=== PATIENT | female | born 1985 ===

== ENCOUNTER 2017-07-23 09:45 | Inpatient (IN) ==
[2017-07-23] MEDS ORDERED: CITRIC ACID/SODIUM CITRATE 30ml PO ONE (10:08)
[2017-07-23] MEDS ORDERED: CEFAZOLIN PREMIX (MC ONLY) 2 GM/50 ML BAG IV ONE (10:08)
[2017-07-23] MEDS ORDERED: FAMOTIDINE PB 20 MG/50 ML BAG IV ONE (10:08)
[2017-07-23] MEDS ORDERED: NOZIN NASAL SWAB NAS ONE ×2 (10:08)
[2017-07-23] MEDS: LR 1,000 ML IV SCH ×2 (10:33→11:00)
[2017-07-23 10:44] VITALS: BMI 27.6
--- NOTE | 2017-07-23 10:48 | Anesthesia Preoperative Report ---
Anesthesia Epidural/Spinal Rec - Date and Time Date: 07/23/17 Preoperative Diagnosis: active lesion herpes simplex virus Procedure: Plan: Spinal - Vital Signs Vital Signs: Temperature 97.8 F 07/23/17 10:36 Pulse Rate 71 07/23/17 10:36 Respiratory Rate 16 07/23/17 10:36 Blood Pressure 135/89 07/23/17 10:36 Pulse Oximetry 100 07/23/17 10:36 NPO since: 2100 /Para: P:0 Heart Rate: 128 Height and Weight: 5'7" 174lbs - Medictaions & Allergies Inpatient Medications: Current Medications Lactated Ringer's (Lactated Ringers) 1,000 mls @ 999 mls/hr IV .Q1H1M [facility] Last Admin: 07/23/17 10:33 Dose: 999 mls/hr Isopropyl Alcohol (Nozin Nasal Swab) 1 each ELIZABETH 0600,1400,2200 [facility] Allergies/Adverse Reactions: Allergies Allergy/AdvReac Type Severity Reaction Status Date / Time No Known Allergies Allergy Verified 07/23/17 10:25 - Home Medications Home Medications: Home Medications Medication Instructions Recorded Confirmed Type Acyclovir [Acyclovir] 400 mg DAILY 07/23/17 07/23/17 History Pnv No.95/Ferrous Fum/Folic AC 1 tab PO DAILY 07/23/17 07/23/17 History [ Tablet] - Surgical History Anesthesia Reactions: None Hx Family Anesthesia Reaction: No History of Motion Sickness: No - Social History Smoking Status: Current every day smoker Second Hand Exposure: Yes Substance Use Type: does not use (denies) Alcohol Intake Frequency: former alcohol drinker (prior to ) Hx Chewing Tobacco Use: No - Pertinent Findings Lab Data: CBC and BMP 07/23/17 10:16 - Physical Exam Respiratory Exam: lungs clear Cardiovascular Exam: regular rate and rhythm - Airway Assessment Mallampati Score: II TMD: 3 Fingerbreadths Neck Extension: fair Overall Assessment: no airway concerns - ASA ASA Score: 2 - Discussion Discussion: Discussed risks/options/alternatives of anesthesia and questions answered. Patient consents. Nursing pain assessment noted. Anesthesia Discussion: family member Attestation Statement: Prior to the delivery of any anesthetic medication, I examined the patient, developed the plan, obtained the patient's consent and discussed the risk and benefits of the procedure with the patient/guardian.
--- OUTSIDE RECORDS SUMMARY | 2017-07-23 10:53 | External Medical Summary | Continuity of Care Document ---
:1985 Author Organization [facility] Address [address] [place], [place] [address] Phone Care Team Providers Name Role Phone Matt Veronica MD Unavailable Unavailable Allergies, Adverse Reactions, Alerts Substance Reaction Severity Status No Known Drug Allergies Unknown Active Medications Medication Instructions Dosage Effective Dates Status Comments (start - stop) acyclovir 400 mg take 1 tablet - Active tablet (400MG) by ORAL route every 8 hours until delivery Vitamin take 1 tablet by Not Available - Active tablet oral route every day Problems Condition Effective Dates (start - stop) Clinical Status 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 Encntr for suprvsn of normal first - preg, third trimester 32 weeks gestation of - Irregular Menses Encounter for test, result unknown Matern care for oth or susp poor fetl - grth, third tri, unsp Other viral diseases complicating - , third trimester 34 weeks gestation of - Maternal care for excess growth, - second tri, unsp Encntr for suprvsn of normal first - preg, second trimester 17 weeks gestation of - Maternal care for excess growth, - second tri, unsp Encntr for suprvsn of normal first - preg, second trimester 20 weeks gestation of - Abnormal glucose complicating - 31 weeks gestation of - Frequency of micturition Pap Smear Screening, Cervix - Encntr for suprvsn of normal first - preg, first trimester 13 weeks gestation of - Encntr for suprvsn of normal first - preg, first trimester 13 weeks gestation of - Encntr for suprvsn of normal first - preg, first trimester 13 weeks gestation of - Encntr for suprvsn of normal first - preg, second trimester 24 weeks gestation of - Encntr for suprvsn of normal first - preg, second trimester 20 weeks gestation of - Encntr for suprvsn of normal first - preg, second trimester 27 weeks gestation of - OCP Surveillance - Active Herpes Simplex Virus Active Procedures Procedure Date Immuniz admnin, 1 vac, sngl/combo 19 Yrs + TDAP VACCINE >7 IM OB Visit No Charge Results Test Name Date and Time Measure Units Reference Range Abnormal Flag Comments Unknown Advance Directives Directive Yes / No Effective Date File Name Unknown Encounters Encounter Practice Location Reason(s) Diagnoses Date Provider Care Team Description For Visit Members Keyana Geiger Matern care for Jun- Pineda Referring In Womens oth or susp poor 5-201 Soni. Provider: Erica GAVIRIA, fetl grth, third 7 [address] tri, unspOther Medical Driss, 700 1522, viral diseases [facility], complicating , [facility] [address] CH[address]VEZ, , third 120, Tar[place] 120, [id number], [email or web address] Juanjo Geiger, [place] weeks gestation KYLER CHÁVEZ, tel: of [phone] , [place]. tel: tel: [phone] Keyana Geiger Encntr for Jun- Pineda Referring In Womens suprvsn of 1-201 Soni. Provider: Erica GAVIRIA, normal first 7 [address] PO [address] preg, third Medical Driss, 700 1522, [email or web address] [facility] , [facility] Dr CHÁVEZ, of 120, Tar[place] 120, [id number], Juanjo Geiger, [place], tel: [phone]. , [place]. tel: tel: [phone] Keyana Geiger Abnormal glucose Oct-2 Pineda Referring In Womens complicating 0-201 Soni. Provider: Erica GAVIRIA, [email or web address] 7 [address] PO Box weeks gestation Medical Driss, 700 1522, of [facility] Esdras, , [facility] Dr CHÁVEZ, 120, Tar[place] 120, [id number], Juanjo Geiger, [place], tel: [phone]. , [place]. tel: tel: [phone] Keyana Geiger Encntr for Sep-2 Pineda Referring In Womens suprvsn of 7-201 Soni. Provider: Erica GAVIRIA, normal first 7 [address] PO Box preg, second Medical Driss, 700 1522, [email or web address] [facility], weeks gestation , [facility] Dr CHÁVEZ, of 120, Taras 120, , Juanjo Geiger, [place], tel: [phone]. , [place]. tel: tel: [phone] Keyana Geiger Encntr for Sep-0 Pineda Referring In Womens suprvsn of 6-201 Soni. Provider: Erica GAVIRIA, normal first 7 [address] PO Box preg, second Medical Driss, 700 1522, [email or web address] [facility], weeks [facility] , [facility] Dr [address]VEZ, of 120, Taras 120, [id number], Juanjo Geiger, [place], tel: [phone]. , [place]. tel: tel: [phone] Keyana Geiger Encntr for Aug-0 Pineda Referring In Womens suprvsn of 9-201 Osni. Provider: Erica GAVIRIA, normal first 7 [address] PO [address] preg, second Medical Driss, 700 1522, [email or web address] [facility], weeks gestation , [facility] Dr [address]VEZ, of 120, Taras 120, , Juanjo Geiger, [place] CHÁVEZ, tel: [phone]. , [place]. tel: tel: [phone] Keyana Geiger Maternal care Aug-0 Pineda Referring In Womens Ultrasound for excess 9-201 Soni. Provider: Health KHADRA, growth, second 7 [address] PO [address] tri, unspEncntr Medical Driss, 700 1522, for suprvsn of [facility], normal first , [facility] Dr CHÁVEZ, preg, second 120, Taras 120, , [email or web address] Juanjo Geiger, [place] weeks gestation [place], [place], tel:+ [phone]. , [place]. tel: tel: [phone] Keyana Geiger Maternal care Pineda Referring In Womens for excess 9-201 Soni. Provider: Health KHADRA, growth, second 7 [address] PO [address] tri, unspEncntr Medical Driss, 700 1522, for suprvsn of [facility], normal first , [facility] Dr [address]ÁVEZ, preg, second 120, Taras 120, , Juanjo Geiger, [place] weeks gestation KYLER CHÁVEZ, tel: of [phone]. , [place]. tel: tel: [phone] Keyana Willis for Frankie-2 Pineda Referring In Womens suprvsn of - Soni. Provider: Health KHADRA, normal first 7 [address] PO [address] preg, first Medical Driss, 700 1522, [email or web address] [facility], weeks gestation , [facility] Dr [address]VEZ, of 120, Tar[place] 120, , Juanjo Geiger, [place]ÁVEZ, tel: [phone]. , [place]. tel: tel: [phone] Keyana Willis for Frankie-2 Moreno Referring In Womens Ultrasound suprvsn of - Leelee. Provider: Health KHADRA, normal first 7 [address] PO [address] preg, first Medical Driss, 700 1522, [email or web address] [facility], weeks gestation , [facility] Dr [address]ÁVEZ, of 120, Taras 120, [id number], Juanjo Geiger, [facility], [place], tel:[phone]. , [place]. tel: tel: [phone] Keyana Geiger Encntr for Frankie-2 Pineda Referring In Womens suprvsn of 0-201 Soni. Provider: Erica GAVIRIA, normal first 7 [address] PO Box preg, first Medical Driss, 700 1522, [email or web address] [facility], weeks gestation , [facility] Dr [address]ÁVEZ, of 120, Taras 120, , Juanjo Geiger, [place], [place], tel:[phone]. , [place]. tel: tel: [phone] Geiger Irregular Frankie-0 Madden Referring In Womens MensesEncounter - Shana. Provider: Erica GAVIRIA, for 7 [address] PO Box test, result Medical Driss, 700 1522, unknown [facility] [address], [facility] Dr CHÁVEZ, 120, Taras 120, [id number], Juanjo Geiger, [place], [place], tel:[phone]. , [place]. tel: tel: [phone] Geiger Frequency of December- Driss Referring In Womens micturition 5-201 Skye. Provider: Erica GAVIRIA, 6 [address] PO Box Medical Driss, 700 1522, [place] [address], [facility] Dr CHÁVEZ, 120, Tar[place] 120, [id number], Juanjo Geiger, [place], [place], tel:[phone]. , [place]. 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 Provider: Erica GAVIRIA, (routine) w/o 5 [address] PO Box abn findingsPap Medical Driss, 700 1522, Smear Screening, [place] Jaye Dewitt Cervix , [facility] Dr CHÁVEZ, 120, Taras 120, [id number], Juanjo Geiger, [facility], [place], tel: [phone]. , . tel: tel: [phone] Keyana Geiger Driss Referring In Womens 3-201 Skye. Provider: Erica GAVIRIA, 4 [address] PO Box Medical Driss, 700 1522, [place] [address], [facility] Dr CHÁVEZ, 120, Taras 120, [id number], Juanjo Geiger, [place], [place], tel: [phone]. , . tel: tel: [phone] Family History Family Member Diagnosis Age At Onset No family history of Diabetes No family history of Osteoporosis No family history of Thyroid Disorder No family history of Breast Cancer No family history of Ovarian Cancer No family history of Hypertension No family history of Kidney Problems No family history of Colon Cancer No family history of Epilepsy No family history of Stroke No family history of Uterine Cancer No family history of Cardiovascular Disease No family history of Venous Thrombosis No family history of Lung Disease No family history of Pulmonary Embolism Immunizations Vaccine Date Status Comments Tdap completed Source: New Immunization Record Influenza, injectable, completed Source: New Immunization Record quadrivalent, preservative free, 3 yrs or older Payers Payer name Insurance type Covered green party ID Authorization(s) [employer] [place] - Medicaid MC [id number] Medica CI [id number] Aetna CI [id number] [place] [place] - Medicaid MC [id number] [place] [place] - Medicaid MC [id number] Social History Type Description Quantity Date Captured Alcohol Use Details No Caffeine Use Details Unknown Tobacco Use Status Smoking Status Former smoker Vital Signs Date / Height Weight BMI Pulse Blood Temperature Respiratory Body Head BMI Time: Rate Pressure Rate Surface Circumference percentile Area 167.70 36.2 128/82 2017 lbs 9 mm[Hg] 3:28 kg/m PM eter (2) Chief Complaint And Reason For Visit Unknown Chief Complaint And Reason For Visit Reason For Referral Reason For Referral Unknown Plan Of Care Date Type Action Status Goal Tobacco cessation counseling completed Goal Tobacco cessation counseling completed Goal Tobacco cessation counseling completed Goal Tobacco cessation counseling completed Appointment Tello Garnica BOOKED Appointment Tello Garnica BOOKED Future Order: Radiology Order Complete OB Ultrasound > 14 Ordered Weeks ([id number]) Future Order: Lab Order Pap Smear With HPV Reflex If Ordered ASCUS (WPMPap1) Future Order: Radiology Order Nuchal Translucency ([id number]) Ordered Future Order: Lab Order Pap Smear With High Risk HPV Ordered (WPMPap2) Date Type Problem Goal Intervention Status Start Date Unknown. History Of Present Illness Encounter Date Complaint History Of Present Illness This patient has no known history of present illness Functional Status Encounter Date Functional Assessment Cognitive Assessment Unknown Medications Administered Medication Instructions Dosage Effective Dates (start - stop) Status Comments Drug Treatment Unknown Instructions Date Instruction Additional Information toxoplasmosis precautions (cats / raw meat) HIV and other routine tests risk factors identified by history anticipated course of care nutrition and weight gain counseling, special diet sexual activity exercise indications for ultrasound influenza vaccine environmental / work hazards travel tobacco (ask, advise, assess, assist and arrange) use of any medications (including supplements, vitamins, herbs, OTC drugs) smoking counseling domestic violence seat belt use childbirth classes / hospital facilities hospital registration genetic testing new ob handbook Zika virus assessment & precautions
--- OUTSIDE RECORDS SUMMARY | 2017-07-23 10:53 | External Medical Summary | Continuity of Care Document ---
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 Irregular Menses Encounter for test, result unknown Maternal care for excess growth, - second tri, unsp Encntr for suprvsn of normal first - preg, second trimester 17 weeks gestation of - Maternal care for excess growth, - second tri, unsp Encntr for suprvsn of normal first - preg, second trimester 20 weeks gestation of - Frequency of micturition [...] Herpes Simplex Virus Active Procedures Procedure Date Unknown Results Test Name Date and Time Measure Units Reference Range Abnormal Flag Comments Panel Description: GLUCOSE TOLERANCE TEST, GESTATIONAL,4SPEC(100G) GLUCOSE, FASTING 08:04:00 73 mg/dL 65-94 N GLUCOSE, 1 HOUR 08:04:00 170 mg/dL <180 N GLUCOSE, 2 HOUR 08:04:00 145 mg/dL <155 N GLUCOSE, 3 HOUR 08:04:00 96 mg/dL <140 N 08:04:00 See Below Richardson/Coustan Criteria: Two or more values greater than the above reference intervals are suggestive of gestational diabetes. REPORT COMMENT:FASTING:YESTe st performed at [facility] [id number] [place] [address]Piwjzmoq: MELISSA VÁSQUEZ DO,MPH Advance Directives Directive Yes / No Effective Date File Name Unknown Encounters Encounter Practice Location Reason(s) Diagnoses Date Provider Care Team Description For Visit Members Keyana Geiger Sep-2 Pineda In Womens 8-201 Soni. [facility], 7 700 [address] Medical [address], [place] [address] [place], 120, [id number], [facility], tel: [phone] , [place]. tel: [phone] Keyana Geiger Encntr for Sep-2 Pineda Referring In Womens suprvsn of 7-201 Soni. Provider: Health PA, normal first 7 [address] PO Box preg, second Medical Driss, 700 1522, [email or web address] [place] [address], weeks gestation , [facility] [address] CHÁVEZ, of 120, Tar[place] 120, [id number], Juanjo Geiger, [place], [place], tel: [phone]. , [place]. tel: tel: [phone] Keyana Willis for Sep-0 Pineda Referring In Womens suprvsn of 6-201 Soni. Provider: Erica GAVIRIA, normal first 7 [address] PO Box preg, second Medical Driss, 700 1522, [email or web address] [facility], weeks gestation , [facility] [address] CHÁVEZ, of 120, Tar[place] 120, [id number], Juanjo Geiger, [place] CHÁVEZ, tel:[phone]. , [place]. tel: tel: [phone] Keyana Willis for Aug-0 Pineda Referring In Womens suprvsn of 9-201 Soni. Provider: Erica GAVIRIA, normal first 7 [address] PO Box preg, second Medical Driss, 700 1522, [email or web address] [facility], weeks gestation , [facility] [address] CHÁVEZ, of 120, Tar[place] 120, , Juanjo Geiger, [place]VEZ, tel:[phone]. , [place]. tel: tel: [phone] Keyana Geiger Maternal care Aug-0 Pineda Referring In Womens Ultrasound for excess 9-201 Soni. Provider: Erica GAVIRIA, growth, second 7 [address] PO Box tri, unspEncntr Medical Driss, 700 1522, for suprvsn of [facility], normal first , [facility] [address] CHÁVEZ, preg, second 120, Tar[place] 120, [id number], [email or web address] Juanjo Geiger, [place] weeks gestation KYLER CHÁVEZ, tel: of [phone]. , [place]. tel: tel: [phone] Keyana Geiger Maternal care Ta-1 Pineda Referring In Womens for excess 9-201 Soni. Provider: Erica GAVIRIA, growth, second 7 [address] PO Box tri, unspEncntr [facility] Driss, 700 1522, for suprvsn of [facility], normal first , [facility] [address] CHÁVEZ, preg, second 120, Taras 120, [id number], [email or web address] Juanjo Geiger, [place] weeks gestation KYLER CHÁVEZ, tel: of [phone]. , [place]. tel: tel: [phone] Keyana Geiger Encntr for Frankie-2 Pineda Referring In Womens suprvsn of 1-201 Soni. Provider: Erica GAVIRIA, normal first 7 [address] PO Box preg, first Medical Driss, 700 1522, [facility] , [facility] [address] CHÁVEZ, of 120, Taras 120, , Juanjo Geiger, [place], [place], tel: [phone]. , [place]. tel: tel: [phone] Keyana Geiger Encntr for Frankie-2 Moreno Referring In Womens Ultrasound suprvsn of 1-201 Leelee. Provider: Erica GAVIRIA, normal first 7 [address] PO Box preg, first Medical Driss, 700 1522, [email or web address] [facility] sEdras, weeks gestation , [facility] [address] CHÁVEZ, of 120, Taras 120, , Juanjo Geiger, [place], [place], tel: [phone]. , [place]. tel: tel: [phone] Keyana Geiger Encntr for Frankie-2 Pineda Referring In Womens suprvsn of 0-201 Soni. Provider: Erica GAVIRIA, normal first 7 [address] PO Box preg, first Medical Driss, 700 1522, [email or web address] [facility], weeks gestation , [facility] [address] CHÁVEZ, of 120, Taras 120, , Juanjo Geiger, [place], [place], tel: [phone]. , [place]. tel: tel: [phone] Keyana Geiger Irregular Frankie-0 Madden Referring In Womens MensesEncounter 5-201 Shana. Provider: Erica GAVIRIA, for 7 [address] PO Box test, result Medical Driss, 700 1522, unknown [place] [address], [facility] Dr CHÁVEZ, 120, Tar[place] 120, [id number], Juanjo Geiger, [place], tel: [phone]. , [place]. tel: tel: [phone] [facility] Frequency of December- Driss Referring In Womens micturition 5-201 Skye. Provider: Erica GAVIRIA, 6 [address] PO Box Medical Driss, 700 1522, [place] [address], [facility] Dr CHÁVEZ, 120, Tar[place] 120, [id number], Juanjo Ge[place], [place], tel: [phone]. , [place]. 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 Provider: Erica GAVIRIA, (routine) w/o 5 700 [address] PO Box abn findingsPap Medical Driss, 700 1522, Smear Screening, [place] [address], Cervix , [facility] [address] CHÁVEZ, 120, Tar[place] 120, [id number], Juanjo Geiger, [place], [place], tel:[phone]. , [place]. tel: tel: [phone] Keyana Geiger Driss Referring In Womens 3-201 Skye. Provider: Erica GAVIRIA, 4 700 [address] PO Box Medical Driss, 700 1522, [place] [address], [facility] Dr CHÁVEZ, 120, Tar[place] 120, [id number], Juanjo Ge[place], [place], tel: [phone]. , [place]. tel: tel: [phone] Family History Family Member Diagnosis Age At [...] Pulmonary Embolism Immunizations Vaccine Date Status Comments Unknown Payers Payer name Insurance type Covered alliance party ID Authorization(s) [employer] Plan Of [place] - Medicaid MC [id number] [employer] CI [id number] Aetna CI [id number] Social History Type Description Quantity Date Captured Unknown Vital Signs Date / Height Weight BMI Pulse Blood Temperature Respiratory Body Head BMI Time: Rate Pressure Rate Surface Circumference percentile Area Unknown Chief Complaint And Reason For Visit Unknown Chief Complaint And Reason For Visit Reason For Referral Reason For Referral Unknown Plan Of Care Date Type Action Status Goal Tobacco cessation counseling completed Goal Tobacco cessation counseling completed Goal Tobacco cessation counseling completed Goal Tobacco cessation counseling completed Appointment Tello Garnica BOOKED Future Order: Radiology Order Complete OB Ultrasound > 14 Ordered Weeks ([id number]) Future Order: Lab Order Pap Smear With HPV Reflex If Ordered ASCUS (WPMPap1) Future Order: Radiology Order Nuchal Translucency ([id number]) Ordered Future Order: Lab Order Pap Smear [...]
--- OUTSIDE RECORDS SUMMARY | 2017-07-23 10:54 | External Medical Summary | Continuity of Care Document ---
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) w/o abn findings Encntr for suprvsn of normal first - preg, second trimester 24 weeks gestation of - Irregular Menses Encounter for test, result unknown Maternal care for excess growth, - second tri, unsp 17 weeks gestation of - Encntr for suprvsn of normal first - preg, second trimester Maternal care for excess growth, - second tri, unsp Encntr for suprvsn of normal first - preg, second trimester 20 weeks gestation of - Frequency of micturition Pap Smear Screening, Cervix - Encntr for suprvsn of normal first - preg, first trimester 13 weeks gestation of - 13 weeks gestation of - Encntr for suprvsn of normal first - preg, first trimester Encntr for suprvsn of normal first - preg, first trimester 13 weeks gestation of - Encntr for suprvsn of normal first - preg, second trimester 20 weeks gestation of - OCP Surveillance - Active Herpes Simplex Virus Active Procedures Procedure Date OB Visit No Charge Results Test Name Date and Time Measure Units Reference Range Abnormal Flag Comments Unknown Advance Directives Directive Yes / No Effective Date File Name Unknown Encounters Encounter Practice Location Reason(s) Diagnoses Date Provider Care Team Description For Visit Members Keyana Willis for Pineda Referring In Womens suprvsn of 6 Soni. Provider: Erica GAVIRIA, normal first [address] preg, second Medical Driss, 700 1522, [email or web address] [facility], weeks gestation , [facility] Dr CHÁVEZ, of 120, Taras 120, , Juanjo Geiger, KYLER CHÁVEZ, tel:+ [phone]. , [place]. tel: tel: [phone] Keyana Geiger Encmo for Pineda Referring In Womens suprvsn of Soni. Provider: Erica GAVIRIA, normal first 7 [address] preg, second Medical Driss, 700 1522, [id number] [facility], weeks gestation , [facility] Dr CHÁVEZ, of 120, Taras 120, , Juanjo Geiger, KYLER CHÁVEZ, tel:[phone]. , [place]. tel: tel: [phone] Keyana Geiger Maternal care Pineda Referring In Womens Ultrasound for excess - Soni. Provider: Erica GAVIRIA, growth, second 7 [address] tri, unspEncntr Medical Driss, 700 1522, for suprvsn of [facility], normal first , [facility] Dr CHÁVEZ, preg, second 120, Taras 120, [id number], [email or web address] Juanjo Geiger, weeks gestation KYLER CHÁVEZ, tel:[phone]. , [place]. tel: tel: [phone] Keyana Geiger Maternal care Pineda Referring In Womens for excess 9-201 Soni. Provider: Erica GAVIRIA, growth, second 7 [address] tri, [email or web address] Medical Driss, 700 1522, weeks gestation [facility], of , [facility] Dr CHÁVEZ, pregnancyEncntr 120, Taras 120, , for suprvsn of Juanjo Geiger, normal first KYLER, KYLER, tel: preg, second [phone]. trimester , [place]. tel: tel: [phone] Keyana Geiger Encntr for Frankie-2 Pineda Referring In Womens suprvsn of 1-201 Soni. Provider: Erica GAVIRIA, normal first 7 [address] preg, first Medical Driss, 700 1522, [email or web address] [facility], weeks gestation , [facility] Dr CHÁVEZ, of 120, Taras 120, , Juanjo Geiger, KYLER CHÁVEZ, tel:[phone]. , [place]. tel: tel: [phone] Keyana Geiger 13 weeks Frankie-2 Moreno Referring In Womens Ultrasound gestation of 1-201 Leelee. Provider: Erica GAVIRIA, pregnancyEncntr 7 [address] for suprvsn of Medical Driss, 700 1522, normal first [facility], preg, first , [facility] Dr CHÁVEZ, trimester 120, Taras 120, , Juanjo Geiger, KYLER CHÁVEZ, tel: [phone]. , [place]. tel: tel: [phone] Keyana Ovallenttaz for Frankie-2 Pineda Referring In Womens suprvsn of 0-201 Soni. Provider: Erica GAVIRIA, normal first 7 [address] preg, first Medical Driss, 700 1522, [email or web address] [facility], weeks gestation , [facility] Dr CHÁVEZ, of 120, Taras 120, , Juanjo Geiger, KYLER CHÁVEZ, tel:[phone]. , [place]. tel: tel: [phone] Keyana Geiger Irregular Frankie-0 Madden Referring In Womens MensesEncounter 5-201 Shana. Provider: Erica GAVIRIA, for 7 [address] test, result Medical Driss, 700 1522, unknown [place] [address], [facility] Dr CHÁVEZ, 120, Taras 120, [id number], Juanjo Geiger, [place], [place], tel: [phone]. , [place]. tel: tel: [phone] [facility] Frequency of December- Driss Referring In Womens micturition 5-201 Skye. Provider: Erica GAVIRIA, 6 [address] PO [address] Medical Driss, 700 1522, [place] [address], [facility] Dr CHÁVEZ, 120, Taras 120, [id number], Juanjo Geiger, [place], [place], tel: [phone]. , [place]. 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 Provider: Erica GAVIRIA, (routine) w/o 5 [address] abn findingsPap Medical Driss, 700 1522, Smear Screening, [place] Jaye Dewitt, Cervix , [facility] Dr CHÁVEZ, 120, Taras 120, [id number], Juanjo Geiger, [place], [place], tel: [phone]. , [place]. tel: tel: [phone] Keyana Geiger Driss Referring In Womens 3-201 Skye. Provider: Erica GAVIRIA, 4 [address] Medical Driss, 700 1522, [place] [address], [facility] Dr CHÁVEZ, 120, Taras 120, [id number], Juanjo Geiger, [place], tel: [phone]. , [place]. tel: tel: [phone] Family History Family Member Diagnosis Age At [...] Unknown Payers Payer name Insurance type Covered democrat ID Authorization(s) [employer] Plan Of [place] - Medicaid MC [id number] Medica CI [id number] Aetna CI [id number] Social History Type Description Quantity Date Captured Alcohol Use Details No Caffeine Use Details Unknown Tobacco Use Status Smoking Status Former smoker Vital Signs Date / Height Weight BMI Pulse Blood Temperature Respiratory Body Head BMI Time: Rate Pressure Rate Surface Circumference percentile Area 32.7 6 1:47 kg/m PM eter (2) 157.90 34.1 124/ lbs 6 mm[Hg] 1:50 kg/m PM eter (2) Chief Complaint And [...] Complete OB Ultrasound > 14 Ordered Weeks (21613) Future Order: Lab Order Pap Smear With HPV Reflex If Ordered ASCUS ([id number]) Future Order: Radiology Order Nuchal Translucency ([id number]) Ordered Future Order: Lab Order Pap Smear [...]
--- OUTSIDE RECORDS SUMMARY | 2017-07-23 10:54 | External Medical Summary | Continuity of Care Document ---
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 Encntr for suprvsn of normal first - preg, second trimester 27 weeks gestation of - Irregular Menses Encounter [...] Reference Range Abnormal Flag Comments Panel Description: Glucose [Mass/volume] in Serum or Plasma --1 hour post 50 g glucose PO GLUCOSE, 169 mg/dL <140 H One hour value of > GESTATIONAL SCREEN 15:00:00 fn=269 mg/dL indicatesthe (50G)-140 CUTOFF need for a diagnostic 75 g dose 2-hour or100 g dose 3-hour oral glucose tolerance test;patient fasting is required.Test performed at [facility] [address] [id number]: MELISSA VÁSQUEZ DO,MPH Panel Description: HEMOGLOBIN + HEMATOCRIT HEMOGLOBIN 15:00:00 11.5 g/dL 11.7-15.5 L HEMATOCRIT 15:00:00 32.9 % 35.0-45.0 L REPORT COMMENT:FASTING :NOTest performed at [facility] [address] [id number]: MELISSA VÁSQUEZ DO,MPH Advance Directives Directive Yes / No Effective Date File Name Unknown Encounters Encounter Practice Location Reason(s) Diagnoses Date Provider Care Team Description For Visit Members Keyana Willis for Sep-2 Pineda Referring In Womens suprvsn of Soni. Provider: [facility], normal first 7 [address] preg, second Medical Driss, 700 1522, [email or web address] [facility] , [facility] Dr CHÁVEZ, of 120, Taras 120, [id number], Juanjo Geiger, KYLER CHÁVEZ, tel:[phone] [id number] , [place]. tel: tel: [phone] Keyana Willis for Sep-0 Pineda Referring In Womens suprvsn of 6 Soni. Provider: Erica GAVIRIA, normal first 7 [address] preg, second Medical Driss, 700 1522, [email or web address] [facility] , [facility] Dr CHÁVEZ, of 120, Taras 120, , Juanjo Geiger, [place] KYLER CHÁVEZ, tel:[phone]. , [place]. tel: tel: [phone] [facility] Pineda Referring In Womens suprvsn of 9-201 Soni. Provider: Erica GAVIRIA, normal first 7 [address] preg, second Medical Driss, 700 1522, [email or web address] [facility] , [facility] Dr CHÁVEZ, of 120, Taras 120, , Juanjo Geiger, [place] KYLER CHÁVEZ, tel:[phone]. , [place]. tel: tel: [phone] Keyana Geiger Maternal care Mar-0 Pineda Referring In Womens Ultrasound for excess 9-201 Soni. Provider: Erica GAVIRIA, growth, second 7 [address] tri, unspEncntr Medical Driss, 700 1522, [facility], normal first , [facility] Dr CHÁVEZ, preg, second 120, Taras 120, , [email or web address] Juanjo Geiger, weeks gestation KYLER, KYLER, tel:+ [phone]. , [place]. tel: tel: [phone] Keyana Geiger Maternal care Feb- Pineda Referring In Womens for excess 9-201 Soni. Provider: Erica GAVIRIA, growth, second 7 [address] tri, unspEncntr Medical Driss, 700 1522, [facility], normal first , [facility] Dr CHÁVEZ, preg, second 120, Taras 120, [id number], [email or web address] Juanjo Geiger, weeks gestation KYLER, KYLER, tel:+ [phone]. , [place]. tel: tel: [phone] Keyana Geiger Encntr for Frankie-2 Pineda Referring In Womens suprvsn of 1-201 Soni. Provider: Erica GAVIRIA, normal first 7 [address] preg, first Medical Driss, 700 1522, [email or web address] [facility], weeks gestation , [facility] Dr CHÁVEZ, of 120, Taras 120, , Juanjo Geiger, [facility], [place], tel:[phone]. , [place]. tel: tel: [phone] Keyana Geiger Encntr for Frankie-2 Moreno Referring In Womens Ultrasound suprvsn of 1-201 Leelee. Provider: Erica GAVIRIA, normal first 7 [address] preg, first Medical Driss, 700 1522, [email or web address] [facility], weeks gestation , [facility] Dr CHÁVEZ, of 120, Taras 120, , Juanjo Geiger, [place], [place], tel: [phone]. , [place]. tel: tel: [phone] Keyana Geiger Encntr for Frankie-2 Pineda Referring In Womens suprvsn of 0-201 Soni. Provider: Erica GAVIRIA, normal first 7 [address] preg, first Medical Driss, 700 1522, [id number] [facility], weeks gestation , [facility] Dr CHÁVEZ, of 120, Taras 120, , Juanjo Geiger, [place], [place], tel: [phone]. , [place]. tel: tel: [phone] Keyana Geiger Irregular Frankie-0 Madden Referring In Womens MensesEncounter 5-201 Shana. Provider: Erica GAVIRIA, for 7 [address] PO [address] test, result Medical Driss, 700 1522, unknown [facility] Eek, , [facility] Dr CHÁVEZ, 120, Taras 120, [id number], Juanjo Geiger, [place], [place], tel:[phone]. , [place]. tel: tel: [phone] [facility] Frequency of December- Driss Referring In Womens micturition 5-201 Skye. Provider: Erica GAVIRIA, 6 [address] PO Box Medical Driss, 700 1522, [place] [address], [facility] Dr CHÁVEZ, 120, Taras 120, [id number], Juanjo Geiger, [place], [place], tel: [phone]. , [place]. 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 Provider: Erica GAVIRIA, (routine) w/o 5 [address] abn findingsPap Medical Driss, 700 1522, Smear Screening, [facility], Cervix , [facility] Dr CHÁVEZ, 120, Taras 120, [id number], Juanjo Geiger, [place], [place], tel: [phone]. , [place]. tel: tel: [phone] Keyana Geiger Driss Referring In Womens 3-201 Skye. Provider: Erica GAVIRIA, 4 [address] PO [address] Medical Driss, 700 1522, [place] [address], [facility] Dr CHÁVEZ, 120, Taras 120, [id number], Juanjo Geiger, [place], [place], tel: [phone]. , [place]. tel: tel: [phone] Family History Family Member Diagnosis Age At [...] [employer] Plan [place] - Medicaid MC [id number] Medica CI [id number] Aetna CI [id number] Social History Type Description Quantity Date Captured Alcohol Use Details No Caffeine Use Details coffee rare per day Tobacco Use Status Ex-cigarette smoker Smoking Status Former smoker Vital Signs Date / Height Weight BMI Pulse Blood Temperature Respiratory Body Head BMI Time: Rate Pressure Rate Surface Circumference percentile Area 162.80 35.2 / lbs 3 mm[Hg] 2:23 kg/m PM eter (2) Chief Complaint And [...] Complete OB Ultrasound > 14 Ordered Weeks ([id number]) Future Order: Lab Order Pap Smear With HPV Reflex If Ordered ASCUS (WPMPap1) Future Order: Radiology Order Nuchal Translucency ([id number]) Ordered Future Order: Lab Order Pap Smear [...]
--- OUTSIDE RECORDS SUMMARY | 2017-07-23 10:54 | External Medical Summary ---
:1985 Author Organization [employer] Care Team Providers Name Role Phone Andre Christianson Provider Role Unavailable Allergies, Adverse Reactions, Alerts Substance Reaction Event Type N.K.D.A. 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 54504-214 10 MG Orally qD May 20, po day 1, 7-2014 then 5 po day 2, then 4 po day 3, then 3 po day 4, then 2 po day 5, then 1 po day 6 Procedures Procedure Coding System Code Date OFFICE VISIT NEW PT CPT-4 09431 May 20, 2015 Vital Signs Date/Time: May 20, 2015 Blood Pressure Systolic 100 mm Hg Height 67 in Weight 133 lbs BMI 20.83 Index Blood Pressure Diastolic 74 mm Hg Results No Known Results Summary Purpose eClinicalWorks Submission
--- OUTSIDE RECORDS SUMMARY | 2017-07-23 10:54 | External Medical Summary | Continuity of Care Document ---
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 Provider: Erica GAVIRIA, normal first 7 [address] preg, second Medical Driss, 700 1522, [id number] [facility], weeks gestation , [facility] Dr CHÁVEZ, of 120, Taras 120, [id number], Juanjo Geiger, KYLER CHÁVEZ, tel:[phone]. , [place]. tel: tel: [phone] Keyana Geiger Maternal care Pineda Referring In Womens Ultrasound for excess - Soni. Provider: Erica GAVIRIA growth, second 7 [address] Box tri, unspEncntr Medical Driss, 700 1522, for suprvsn of [facility], normal first , [facility] Dr CHÁVEZ, preg, second 120, Taras 120, [id number], [id number] Juanjo Geiegr, weeks gestation KYLER CHÁVEZ, tel: [phone]. , [place]. tel: tel: [phone] Keyana Geiger Maternal care Pineda Referring In Womens for excess 9- Soni. Provider: Erica GAVIRIA growth, second 7 [address] PO Box tri, unspEncntr Medical Driss, 700 1522, for suprvsn of [facility], normal first , [facility] Dr CHÁVEZ, preg, second 120, Taras 120, [id number], [id number] Juanjo Geiger, weeks gestation KYLER CHÁVEZ, tel:+ of [phone]. , [place]. tel: tel: [phone] Keyana Willis for Pineda Referring In Womens suprvsn of - Soni. Provider: [facility], normal first 7 [address] PO Box preg, first Medical Driss, 700 1522, [email or web address] [facility] Esdras, weeks gestation , [facility] Dr CHÁVEZ, of 120, Taras 120, , Juanjo Geiger, KYL[place], KYLER, tel:[phone]. , [place]. tel: tel: [phone] Keyana Geiger Encntr for Frankie-2 Moreno Referring In Womens Ultrasound suprvsn of 1-201 Leelee. Provider: Erica GAVIRIA, normal first 7 [address] PO Box preg, first Medical Driss, 700 1522, [facility] Esdras, weeks gestation , [facility] Dr CHÁVEZ, of 120, Taras 120, , Juanjo Geiger, KYL[place], KYLER, tel:[phone]. , [place]. tel: tel: [phone] Geiger 13 weeks Frankie-2 Pineda Referring In Womens gestation of 0-201 Soni. Provider: Erica GAVIRIA, pregnancyEncntr 7 [address] PO Box for suprvsn of Medical Driss, 700 1522, normal first [place] Jaye Dewitt, preg, first , [facility] Dr CHÁVEZ, trimester 120, Taras 120, [id number], Juanjo Geiger, KYLER, KYLER, tel:[phone]. , [place]. tel: tel: [phone] Geiger Irregular Frankie-0 Madden Referring In Womens MensesEncounter 5-201 Shana. Provider: Erica GAVIRIA, for 7 [address] PO Box test, result Medical Driss, 700 1522, unknown [facility] [address], [facility] Dr CHÁVEZ, 120, Taras 120, [id number], Juanjo Geiger, [place], [place]YL[place], tel: [phone]. , [place]. tel: tel: [phone] Keyana Geiger Frequency of December-0 Driss Referring In Womens micturition 5-201 Skye. Provider: Health KHADRA, 6 [address] PO Box Medical Driss, 700 1522, [place] [address], [facility] Dr CHÁVEZ, 120, Taras 120, [id number], Juanjo Geiger, KYLER CHÁVEZ, tel: [phone]. , [place]. 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 Provider: Health KHADRA, (routine) w/o 5 [address] PO Box abn findingsPap Medical Driss, 700 1522, Smear Screening, [place] Jaye Dewitt, Cervix , [facility] Dr CHÁVEZ, 120, Taras 120, [id number], Juanjo Geiger, KYLER, KYLER, tel: [phone]. , [place]. tel: tel: [phone] Keyana Geiger Driss Referring In Womens 3-201 Skye. Provider: Erica GAVIRIA, 4 [address] PO Box Medical Driss, 700 1522, [place] [address], [facility] Dr CHÁVEZ, 120, Taras 120, [id number], Juanjo Geiger, KYLER, KYLER, tel: [phone]. , [place]. tel: tel: [phone] Family History Family Member Diagnosis Age At [...] [employer] Plan [place] - Medicaid MC [id number] Medica CI [id number] [employer] CI [id number] Social History Type Description Quantity Date Captured Alcohol Use Details No Caffeine Use Details Unknown Tobacco Use Status Smoking Status Former smoker Vital Signs Date / Height Weight BMI Pulse Blood Temperature Respiratory Body Head BMI Time: Rate Pressure Rate Surface Circumference percentile Area 151.40 32.7 127/70 2017 lbs 6 mm[Hg] 1:53 kg/m PM eter (2) Chief Complaint And [...] Complete OB Ultrasound > 14 Ordered Weeks ([id number]) Future Order: Lab Order Pap Smear With HPV Reflex If Ordered ASCUS (WPMPap1) Future Order: Radiology Order Nuchal Translucency ([id number]) Ordered Future Order: Lab Order Pap Smear [...]
--- OUTSIDE RECORDS SUMMARY | 2017-07-23 10:54 | External Medical Summary | Continuity of Care Document ---
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 Provider: Erica GAVIRIA, [email or web address] 7 [address] PO Box weeks gestation Medical Driss, [address], of [place] [address], [facility] Dr CHÁVEZ, 120, Taras 120, [id number], Juanjo [place], [place], [place], tel:[phone]. , [place]. tel: tel: [phone] Keyana Geiger Oct-0 Pineda In Womens 4-201 Soni. Erica GAVIRIA, 7 700 [address] Medical [address], [address] [place] Esdras, [facility] [place], 120, [id number], [place], [place], tel:[phone] , [place]. tel: [phone] Keyana Willis for Sep-2 Pineda Referring In Womens suprvsn of 7-201 Soni. Provider: Erica GAVIRIA, normal first 7 [address] PO Box preg, second Medical Driss, 700 1522, [email or web address] [place] [address], weeks gestation , [facility] Dr CHÁVEZ, of 120, Taras 120, [id number], Juanjo [place], [place], [place], tel:[phone]. , [place]. tel: tel: [phone] Keyana Ovallenttaz for Sep-0 Pineda Referring In Womens suprvsn of 6-201 Soni. Provider: Erica GAVIRIA, normal first 7 [address] PO Box preg, second Medical Driss, 700 1522, [email or web address] [facility], weeks gestation , [facility] Dr CHÁVEZ, of 120, Taras 120, , Juanjo [place], [place] [address], tel: [phone]. , [place]. tel: tel: [phone] Keyana Ge[place] Encnttaz for Aug-0 Pineda Referring In Womens suprvsn of 9-201 Soni. Provider: Health KHADRA, normal first 7 [address] PO Box preg, second Medical Driss, 700 1522, [email or web address] [facility], weeks gestation , [facility] Dr CHÁVEZ, of 120, Taras 120, , Juanjo [place], [place], tel: [phone]. , [place]. tel: tel: [phone] Keyana Ge[place] Maternal care Mar-0 Pineda Referring In Womens Ultrasound for excess 9-201 Soni. Provider: Health KHADRA, growth, second 7 [address] PO Box tri, unspEncntr Medical Driss, 700 1522, for suprvsn of [facility], normal first , [facility] Dr CHÁVEZ, preg, second 120, Taras 120, [id number], [email or web address] Juanjo Geiger, weeks gestation [place] [address], tel: of [phone]. , [place]. tel: tel: [phone] Keyana Geiger Maternal care Feb- Pineda Referring In Womens for excess 9-201 Soni. Provider: Health KHADRA, growth, second 7 [address] PO Box tri, unspEncntr Medical Driss, 700 1522, for suprvsn of [facility], normal first , [facility] Dr CHÁVEZ, preg, second 120, Taras 120, [id number], [email or web address] Juanjo [place], weeks gestation [place] [address], tel: of [phone]. , [place]. tel: tel: [phone] Keyana Ge[place] Encntr for Frankie-2 Pineda Referring In Womens suprvsn of 1-201 Soni. Provider: Erica GAVIRIA, normal first 7 700 [address] PO Box preg, first Medical Driss, 700 1522, [email or web address] [facility], weeks gestation , [facility] Dr CH[address]Z, of 120, Taras 120, [id number], Juanjo [place], [place], [place], tel: [phone]. , [place]. tel: tel: [phone] Keyana Ge[place] Encntr for Frankie-2 Moreno Referring In Womens Ultrasound suprvsn of 1-201 Leelee. Provider: Erica GAVIRIA, normal first 7 [address] PO Box preg, first Medical Driss, 700 1522, [email or web address] [facility] , [facility] Dr CHÁVEZ, of 120, Taras 120, , Juanjo [place], [place], [place], tel:[phone]. , [place]. tel: tel: [phone] Keyana Ge[place] Encntr for Frankie-2 Pineda Referring In Womens suprvsn of 0-201 Soni. Provider: Erica GAVIRIA, normal first 7 [address] PO Box preg, first Medical Driss, 700 1522, [email or web address] [facility], weeks gestation , [facility] Dr CHÁVEZ, of 120, Taras 120, , Juanjo [place], [place], tel: [phone]. , [place]. tel: tel: [phone] Keyana Geiger Irregular Frankie-0 Madden Referring In Womens MensesEncounter 5-201 Shana. Provider: Erica GAVIRIA, for 7 [address] PO Box test, result Medical Driss, 700 1522, unknown [facility] [place], , [facility] Dr CHÁVEZ, 120, Tar[place] 120, [id number], Juanjo [place], [place], tel: [phone]. , [place]. tel: tel: [phone] Keyana Ge[place] Frequency of December- Driss Referring In Womens micturition 5-201 Skye. Provider: Erica GAVIRIA, 6 700 [address] PO Box Medical Driss, 700 15[address], [place] [address], [facility] Center Dr CHÁVEZ, 120, Taras 120, [id number], Juanjo Ge[place], [facility], [place], tel: [phone]. , [place]. tel: tel: [phone] Keyana Ge[place] Encntr for barker peeler Jul- Holdeman Referring In Womens exam (general) 7-201 Anaya. Provider: Erica GAVIRIA, (routine) w/o 5 700 [address] PO Box abn findingsPap Medical Driss, 700 1522, Smear Screening, [facility] [place], Cervix , [facility] Dr CHÁVEZ, 120, Taras 120, [id number], Juanjo Ge[place], [facility], [place], tel: [phone]. , [place]. tel: tel: [phone] Keyana Ge[place] Driss Referring In Womens 3-201 Skye. Provider: Erica GAVIRIA, 4 700 [address] PO Box Medical Driss, 700 1522, [place] [address], [facility] Center Dr CHÁVEZ, 120, Taras 120, [id number], Juanjo Ge[place], [facility], [place], tel: [phone]. , [place]. tel: tel: [phone] Family History Family Member Diagnosis Age At [...] Pulmonary Embolism Immunizations Vaccine Date Status Comments Influenza, injectable, completed Source: New Immunization Record quadrivalent, preservative free, 3 yrs or older Payers Payer name Insurance type Covered green party ID Authorization(s) [employer] [place] - Medicaid MC [id number] Medica CI [id number] Aetna CI [id number] [place] [place] - Medicaid MC [id number] Social History Type Description Quantity Date Captured [...] Complete OB Ultrasound > 14 Ordered Weeks (43972) Future Order: Lab Order Pap Smear With HPV Reflex If Ordered ASCUS (WPMPap1) Future Order: Radiology Order Nuchal Translucency ([id number]) Ordered Future Order: Lab Order Pap Smear [...]
--- OUTSIDE RECORDS SUMMARY | 2017-07-23 10:54 | External Medical Summary | Continuity of Care Document ---
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 Provider: Erica GAVIRIA, normal first 7 [address] PO Box preg, second Medical Driss, 700 1522, [email or web address] [facility], weeks gestation , [facility] Dr CHÁVEZ, of 120, Tar[place] 120, [id number], Juanjo [place], [place], [place], tel:[phone]. , [place]. tel: tel: [phone] Keyana Geiger Sep-1 Pineda In Womens 3-201 Soni. Erica GAVIRIA, 7 700 PO Box Medical [address], [address] Esdras, [facility] [place], 120, , [place], [place], tel: [phone] , [place]. tel: [phone] Keyana Ge[place] Encntr for Sep-0 Pineda Referring In Womens suprvsn of 6-201 Soni. Provider: Erica GAVIRIA, normal first 7 [address] PO Box preg, second Medical Driss, 700 1522, [email or web address] [facility], weeks gestation , [facility] Dr CH[address]VEZ, of 120, Tar[place] 120, , Juanjo [place], [place], [place], tel:+ [phone]. , [place]. tel: tel: [phone] Keyana Geiger Encntr for Aug-0 Pineda Referring In Womens suprvsn of 9-201 Soni. Provider: Erica GAVIRIA, normal first 7 [address] PO Box preg, second Medical Driss, 700 1522, [email or web address] [facility], weeks gestation , [facility] Dr CHÁVEZ, of 120, Taras 120, , Juanjo [place], [place], tel: [phone]. , [place]. tel: tel: [phone] Keyana Geiger Maternal care Aug-0 Pineda Referring In Womens Ultrasound for excess 9-201 Soni. Provider: Health KHADRA, growth, second 7 [address] PO Box tri, unspEncntr Medical Driss, 700 1522, for suprvsn of [facility], normal first , [facility] Dr CHÁVEZ, preg, second 120, Taras 120, , Juanjo Geiger, weeks gestation [place] [address], tel:+ [phone]. , [place]. tel: tel: [phone] Keyana Geiger Maternal care Feb- Pineda Referring In Womens for excess 9-201 Soni. Provider: Health KHADRA, growth, second 7 [address] PO Box tri, unspEncntr Medical Driss, 700 1522, for suprvsn of [facility], normal first , [facility] Dr CHÁVEZ, preg, second 120, Taras 120, [id number], Juanjo [place], weeks gestation [place] [address], tel:+ [phone]. , [place]. tel: tel: [phone] Keyana Willis for Frankie-2 Pineda Referring In Womens suprvsn of 1-201 Soni. Provider: Health KHADRA, normal first 7 [address] PO Box preg, first Medical Driss, 700 1522, [email or web address] [facility], weeks gestation , [facility] Dr CHÁVEZ, of 120, Taras 120, , Juanjo [place], [place], tel: [phone]. , [place]. tel: tel: [phone] Keyana Willis for Frankie-2 Moreno Referring In Womens Ultrasound suprvsn of 1-201 Leelee. Provider: Health KHADRA, normal first 7 [address] PO Box preg, first Medical Driss, 700 1522, [email or web address] [facility] Es[place], weeks gestation , [facility] Dr CHÁVEZ, of 120, Tar[place] 120, [id number], Juanjo [place], [place], [place], tel:+ [phone]. , [place]. tel: tel: [phone] Keyana Ovallentr for Frankie-2 Pineda Referring In Womens suprvsn of 0-201 Soni. Provider: Erica GAVIRIA, normal first 7 [address] PO Box preg, first Medical Driss, 700 1522, [email or web address] [facility] [place], weeks gestation , [facility] Dr CHÁVEZ, of 120, Taras 120, , Juanjo Geiger, [facility], [place], tel:[phone]. , [place]. tel: tel: [phone] Keyana Geiger Irregular Frankie-0 Madden Referring In Womens MensesEncounter 5-201 Shana. Provider: Erica GAVIRIA, for 7 700 [address] PO Box test, result Medical Driss, 700 1522, unknown Center [address], [facility] Dr CHÁVEZ, 120, Tar[place] 120, [id number], Juanjo Geiger, [facility], [place], tel:[phone]. , [place]. tel: tel: [phone] [place] Frequency of December- Driss Referring In Womens micturition 5-201 Skye. Provider: Erica GAVIRIA, 6 700 [address] PO Box Medical Driss, 700 1522, [address], [facility] Dr CHÁVEZ, 120, Taras 120, [id number], Juanjo [place], [place], tel:[phone]. , [place]. tel: tel: [phone] Keyana Ge[place] Encntr for outside repairer special Dec- Holdeman Referring In Womens exam (general) 7-201 Anaya. Provider: Health KHADRA, (routine) w/o 5 700 [address] PO Box abn findingsPap Medical Driss, 700 1522, Smear Screening, [place] [address] Dewitt Cervix , [facility] Dr CH[address]VEZ, 120, Tar[place] 120, [id number], Juanjo Geiger, [facility], [place], tel: [phone]. , . tel: tel: [phone] Keyana Gegier Driss Referring In Womens 3-201 Skye. Provider: Erica GAVIRIA, 4 700 [address] PO Box Medical Driss, [address], [address], [facility] Dr CHÁVEZ, 120, Tar[place] 120, [id number], Juanjo Geiger, [facility], [place], tel: [phone]. , . tel: tel: [phone] Family History Family Member Diagnosis Age At [...] [employer] [place] - Medicaid MC [id number] Medica CI [id number] Aetna CI [id number] Social History Type Description Quantity Date Captured [...] Complete OB Ultrasound > 14 Ordered Weeks (13437) Future Order: Lab Order Pap Smear With HPV Reflex If Ordered ASCUS (WPMPap1) Future Order: Radiology Order Nuchal Translucency ([id number]) Ordered Future Order: Lab Order Pap Smear [...]
--- OUTSIDE RECORDS SUMMARY | 2017-07-23 10:54 | External Medical Summary | Continuity of Care Document ---
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) - (routine) w/o abn findings Maternal care for excess growth, - second tri, unsp Encntr for suprvsn of normal first - preg, second trimester 17 weeks gestation of - Irregular Menses Encounter for test, result unknown Frequency of micturition Pap Smear Screening, Cervix [...] Procedures Procedure Date OB Visit No 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 Provider: Erica GAVIRIA, growth, second 7 [address] PO Box tri, unspEncntr Medical Driss, 700 1522, for suprvsn of [facility], normal first , [facility] Dr CHÁVEZ, preg, second 120, Taras 120, [id number], [email or web address] Juanjo [place], weeks gestation [place], [place], tel: of [phone]. , [place]. tel: tel: [phone] Keyana Geiger Encntr for Frankie-2 Pineda Referring In Womens suprvsn of 1-201 Soni. Provider: Erica GAVIRIA, normal first 7 700 [address] PO Box preg, first Medical Driss, 700 1522, [email or web address] [facility], weeks gestation , [facility] Dr CHÁVEZ, of 120, Taras 120, , Juanjo [place], [place], tel:[phone]. , [place]. tel: tel: [phone] Keyana Geiger Encntr for Frankie-2 Mroeno Referring In Womens Ultrasound suprvsn of 1-201 Leelee. Provider: Erica GAVIRIA, normal first 7 700 [address] PO Box preg, first Medical Driss, 700 1522, [email or web address] [facility], weeks gestation , [facility] Dr CHÁVEZ, of 120, Taras 120, , Juanjo [place], [place], tel:[phone]. , [place]. tel: tel: [phone] Keyana Ge[place] Encntr for Frankie-2 Pineda Referring In Womens suprvsn of 0-201 Soni. Provider: Erica GAVIRIA, normal first 7 700 [address] PO Box preg, first Medical Driss, 700 1522, [email or web address] [facility], weeks gestation , [facility] Dr CHÁVEZ, of 120, Traas 120, , Juanjo [place], [place], tel:[phone]. , [place]. tel: tel: [phone] [facility] Irregular Frankie-0 Madden Referring In Womens MensesEncounter 5-201 Shana. Provider: Erica GAVIRIA, for 7 700 [address] PO Box test, result Medical Driss, 700 1522, unknown [place] [address], [facility] Dr CHÁVEZ, 120, Tar[place] 120, [id number], Juanjo [place], [place], [place], tel: [phone]. , [place]. tel: tel: [phone] [facility] Frequency of December- Driss Referring In Womens micturition 5-201 Skye. Provider: Erica GAVIRIA, 6 700 [address] PO Box Medical Driss, 700 1522, [place] [address], [facility] Dr CHÁVEZ, 120, Taras 120, [id number], Juanjo [place], [facility], [place], tel:[phone]. , [place]. 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 Provider: Erica GAVIRIA, (routine) w/o 5 700 [address] PO Box abn findingsPap Medical Driss, 700 1522, Smear Screening, [place] [address], Cervix , [facility] Dr CHÁVEZ, 120, Tar[place] 120, [id number], Juanjo [place], [place], [place], tel: [phone]. , [place]. tel: tel: [phone] [facility] Driss Referring In Womens 3-201 Skye. Provider: Erica GAVIRIA, 4 700 [address] PO Box Medical Driss, 700 1522, [place] [address], [facility] Dr CHÁVEZ, 120, Taras 120, [id number], Juanjo [place], [place], [place], tel: [phone]. , [place]. tel: tel: [phone] Family History Family Member Diagnosis Age At [...] Unknown Payers Payer name Insurance type Covered libertarian ID Authorization(s) [employer] Plan Of [place] - Medicaid MC [id number] Medica CI [id number] Aetna CI [id number] Social History Type Description Quantity Date Captured Alcohol Use Details No Caffeine Use Details Unknown Tobacco Use Status Smoking Status Former smoker Vital Signs Date / Height Weight BMI Pulse Blood Temperature Respiratory Body Head BMI Time: Rate Pressure Rate Surface Circumference percentile Area 140.90 30.4 / lbs 9 mm[Hg] 11:29 kg/m AM eter (2) 29.8 8 11:25 kg/m AM eter (2) 29.8 132/ 8 mm[Hg] 11:28 kg/m AM eter (2) Chief Complaint And Reason For Visit Unknown Chief Complaint And Reason For Visit Reason For Referral Reason For Referral Unknown Plan Of Care Date Type Action Status Goal Tobacco cessation counseling completed Goal Tobacco cessation counseling completed Goal Tobacco cessation counseling completed Goal Tobacco cessation counseling completed Appointment Tello Garnica BOOKED Appointment Tello Garnica BOOKED Future Order: Lab Order Pap Smear With HPV Reflex If Ordered ASCUS (WPMPap1) Future Order: Radiology Order Nuchal Translucency ([id number]) Ordered Future Order: Lab Order Pap Smear [...]
--- OUTSIDE RECORDS SUMMARY | 2017-07-23 10:54 | External Medical Summary | Continuity of Care Document ---
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) w/o abn findings Matern care for oth or susp poor fetl - grth, third tri, unsp Other viral diseases complicating - , third trimester 34 weeks gestation of - Irregular Menses Encounter for test, result unknown Matern care for oth or susp poor fetl - gr, third tri, unsp 36 weeks gestation of - Maternal care for [...] second trimester 27 weeks gestation of - Encntr for suprvsn of normal first - preg, third trimester Encounter For Screening For - Streptococcus B 36 weeks gestation of - Encntr for suprvsn of normal first - preg, third trimester 32 weeks gestation of - Encntr for suprvsn of normal first - preg, third trimester 37 weeks gestation of - OCP Surveillance - Active Herpes Simplex Virus Active Procedures Procedure Date OB Visit No Charge Results Test Name Date and Time Measure Units Reference Range Abnormal Flag Comments Unknown Advance Directives Directive Yes / No Effective Date File Name Unknown Encounters Encounter Practice Location Reason(s) Diagnoses Date Provider Care Team Description For Visit Members Keyana Lucasr for Pineda Referring In Womens suprvsn of normal 5-201 Soni. Provider: [facility], first preg, third 7 [address] [id number] weeks Medical Driss, 700 1522, gestation of [facility] [place], , [facility] Dr [address]Z, 120, Taras 120, [id number], Juanjo Geiger, [place] KYLER CHÁVEZ, tel:[phone] [id number] , [place]. tel:+ tel: [phone] Keyana Geiger Encntr for Nov-2 Pineda Referring In Womens suprvsn of normal 9-201 Soni. Provider: Erica GAVIRIA, first preg, third 7 [address] trimesterEncounte Medical Driss, 700 1522, r For [facility], Screening For Dr, [facility] Dr CHÁVEZ, Streptococcus B36 120, Taras 120, [id number], weeks gestation Juanjo Geiger, [place] of [place]YLER CHÁVEZ, tel: [phone]. , [place]. tel: tel: [phone] Keyana Geiger Matern care for Nov-2 Pineda Referring In Womens Ultrasound oth or susp poor 9-201 Soni. Provider: Erica GAVIRIA, fetl grth, third 7 [address] tri, [email or web address] weeks Medical Driss, 700 1522, gestation of [facility], , [facility] Dr CHÁVEZ, 120, Taras 120, , [place], [place], tel: [phone]. , [place]. tel: tel: [phone] Keyana Geiger Matern care for Nov-1 Pineda Referring In Womens oth or susp poor 5-201 Soni. Provider: Erica GAVIRIA, fetl grth, third 7 [address] tri, unspOther Medical Driss, 700 1522, viral diseases [facility], complicating , [facility] Dr CHÁVEZ, , third 120, Taras 120, [id number], [id number] weeks Juanjo Geiger, [place] gestation of K[place]ER CHÁVEZ, tel: [phone]. , [place]. tel: tel: [phone] Keyana Geiger Encntr for Nov-0 Pineda Referring In Womens suprvsn of normal 1-201 Soni. Provider: Erica GAVIRIA, first preg, third 7 [address] [email or web address] weeks Medical Driss, 700 1522, gestation of [facility], , [facility] Dr CHÁVEZ, 120, Taras 120, , [place] Geiger, [place]ER [place]Z, tel: [phone]. , [place]. tel: tel: [phone] Keyana Geiger Abnormal glucose Oct-2 Pineda Referring In Womens complicating 0-201 Soni. Provider: Erica GAVIRIA, [email or web address] weeks 7 [address] PO Box gestation of Medical Driss, 700 1522, [facility], , [facility] Dr [address]ÁVEZ, 120, Taras 120, [id number], Juanjo Geiger, [facility], [place], tel: [phone]. , [place]. tel: tel: [phone] Keyana Ovallentr for Sep-2 Pineda Referring In Womens suprvsn of normal 7-201 Soni. Provider: Erica GAVIRIA, first preg, 7 [address] PO Box second Medical Driss, 700 1522, [email or web address] weeks [facility] [place], gestation of , [facility] Dr CHÁVEZ, 120, Taras 120, , Juanjo Geiger, [facility], [place], tel: [phone]. , [place]. tel: tel: [phone] Keyana Ovallentr for Sep-0 Pineda Referring In Womens suprvsn of normal 6-201 Soni. Provider: Erica GAVIRIA, first preg, 7 [address] PO Box second Medical Driss, 700 1522, [id number] weeks [facility] [place], gestation of , [facility] Dr [address]ÁVEZ, 120, Taras 120, , Juanjo Geiger, [facility], [place], tel: [phone]. , [place]. tel: tel: [phone] Keyana Geiger Encntr for Aug-0 Pineda Referring In Womens suprvsn of normal 9-201 Soni. Provider: Erica GAVIRIA, first preg, 7 [address] PO Box second Medical Driss, 700 1522, [email or web address] weeks [facility], gestation of , [facility] Dr [address]ÁVEZ, 120, Taras 120, , Juanjo Geiger, [place], tel: [phone]. , [place]. tel: tel: [phone] Keyana Geiger Maternal care for Aug-0 Pineda Referring In Womens Ultrasound excess 9-201 Soni. Provider: Erica GAVIRIA, growth, second 7 [address] PO Box tri, unspEncntr [facility] Driss, 700 1522, for suprvsn of [facility], normal first , [facility] Dr [address]ÁVEZ, preg, second 120, Taras 120, [id number], [id number] weeks Juanjo Geiger, gestation of [place], tel: [phone]. , [place]. tel: tel: [phone] Keyana Geiger Maternal care for Ta- Pineda Referring In Womens excess 9-201 Soni. Provider: Erica GAVIRIA, growth, second 7 [address] PO [address] tri, [facility] 700 1522, for suprvsn of [facility], normal first , [facility] Dr CHÁVEZ, preg, second 120, Taras 120, [id number], [id number] weeks Juanjo Geiger, gestation of [place] CHÁVEZ, tel: [phone]. , [place]. tel: tel: [phone] Keyana Willis for Frankie-2 Pineda Referring In Womens suprvsn of normal 1-201 Soni. Provider: Erica GAVIRIA, first preg, first 7 [address] Box [id number] weeks Medical Driss, 700 1522, gestation of [facility], , [facility] Dr CHÁVEZ, 120, Taras 120, , Juanjo Geiger, [place], tel:[phone]. , [place]. tel: tel: [phone] Keyana Geiger Encnttaz for Frankie-2 Moreno Referring In Womens Ultrasound suprvsn of normal 1-201 Leelee. Provider: Erica GAVIRIA, first preg, first 7 [address] Box [id number] weeks Medical Driss, 700 1522, gestation of [facility] [place], , [facility] Dr [address]Z, 120, Taras 120, [id number], Juanjo Geiger, [place], [place], tel: [phone]. , [place]. tel: tel: [phone] Keyana Geiger Encntr for Frankie-2 Pineda Referring In Womens suprvsn of normal 0-201 Soni. Provider: Erica GAVIRIA, first preg, first 7 [address] Box [id number] weeks Medical Driss, 700 1522, [facility], , [facility] Dr [address]VEZ, 120, Taras 120, [id number], Juanjo Geiger, [place], [place], tel: [phone]. , [place]. tel: tel: [phone] Keyana Geiger Irregular Frankie-0 Madden Referring In Womens MensesEncounter 5-201 Shana. Provider: Erica AGVIRIA, for 7 [address] PO [address] test, result Medical Driss, 700 1522, unknown [place] [address], [facility] Dr [address]VEZ, 120, Taras 120, [id number], Juanjo Geiger, [place], [place], tel: [phone]. , [place]. tel: tel: [phone] Keyana Geiger Frequency of December- Driss Referring In Womens micturition 5-201 Skye. Provider: Erica GAVIRIA, 6 [address] PO Box Medical Driss, 700 1522, [place] [address], [facility] Dr [address]VEZ, 120, Taras 120, [id number], Juanjo Geiger, [place], [place], tel:[phone]. , [place]. tel: tel: [phone] Keyana Geiger Encntr for senior officer Dec- Holdeman Referring In Womens exam (general) 7-201 Anaya. Provider: Erica GAVIRIA, (routine) w/o abn 5 [address] PO Box findingsPap Smear Medical Driss, 700 1522, Screening, Cerv[facility] [address], [place] [facility] Dr [place]ÁVEZ, 120, Taras 120, [id number], Juanjo Geiger, [place], [place], tel: [phone]. , . tel: tel: [phone] Keyana Geiger Driss Referring In Womens 3-201 Skye. Provider: Erica GAVIRIA, 4 [address] PO Box Medical Driss, 700 1522, [place] [address], [facility] Dr CHÁVEZ, 120, Taras 120, [id number], Juanjo Geiger, [place] CHÁVEZ, tel: [phone]. , . tel: tel: [phone] Family History Family Member Diagnosis Age At [...] older Payers Payer name Insurance type Covered democrat ID Authorization(s) [employer] [place] - Medicaid MC [id number] Medica CI [id number] Aetna CI [id number] [place] - Medicaid MC [id number] [place] - Medicaid MC [id number] Social History Type Description Quantity Date Captured Alcohol Use Details No Caffeine Use Details Unknown Tobacco Use Status Smoking Status Former smoker Vital Signs Date / Height Weight BMI Pulse Blood Temperature Respiratory Body Head BMI Time: Rate Pressure Rate Surface Circumference percentile Area 169.40 36.6 131/77 2017 lbs 5 mm[Hg] 3:04 kg/m PM eter (2) Chief Complaint And Reason For Visit Unknown Chief Complaint And Reason For Visit Reason For Referral Reason For Referral Unknown Plan Of Care Date Type Action Status Goal Tobacco cessation counseling completed Goal Tobacco cessation counseling completed Goal Tobacco cessation counseling completed Goal Tobacco cessation counseling completed Appointment Tello Garnica BOOKED Future Order: Radiology Order Ultrasound OB Follow-up ([id number]) Ordered Future Order: Radiology Order Complete OB Ultrasound > 14 Ordered Weeks ([id number]) Future Order: Lab Order Pap Smear With HPV Reflex If Ordered ASCUS (WPMPap1) Future Order: Radiology Order Nuchal Translucency ([id number]) Ordered Future Order: Lab Order Pap Smear [...]
--- OUTSIDE RECORDS SUMMARY | 2017-07-23 10:54 | External Medical Summary | Continuity of Care Document ---
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 Provider: Erica GAVIRIA, normal first 7 [address] PO [address] preg, second Medical Driss, 700 1522, [email or web address] [facility], weeks gestation , [facility] Dr CHÁVEZ, of 120, Taras 120, , Juanjo Geiger, [place], [place], tel:[phone]. , [place]. tel: tel: [phone] Keyana Geiger Aug-2 Pineda In Womens Soni. Erica GAVIRIA, 7 700 PO [address] Medical [address], [place] Dr Esdras, [facility] KYLER, 120, , Juanjo, [place], tel: [phone] , [place]. tel: [phone] Keyana Geiger Encntr for Mar-0 Pineda Referring In Womens suprvsn of Soni. Provider: Erica GAVIRIA, normal first 7 [address] PO Box preg, second Medical Driss, 700 1522, [email or web address] [facility] Esdras, weeks gestation , [facility] Dr CHÁVEZ, of 120, Taras 120, [id number], Juanjo Geiger, [place] CHÁVEZ, tel:[phone]. , [place]. tel: tel: [phone] Kyeana Geiger Maternal care Aug-0 Pineda Referring In Womens Ultrasound for excess Soni. Provider: Erica GAVIRIA, growth, second 7 [address] PO Box tri, unspEncntr Medical Driss, 700 1522, for suprvsn of [facility] Esdr[place], normal first , [facility] Dr CHÁVEZ, preg, second 120, Taras 120, [id number], [email or web address] Juanjo Geiger, [place] weeks gestation [place], [place], tel: of [phone]. , [place]. tel: tel: [phone] Keyana Geiger Maternal care Ta- Pineda Referring In Womens for excess 9-201 Soni. Provider: Erica GAVIRIA, growth, second 7 [address] PO Box tri, unspEncntr Medical Driss, 700 1522, for suprvsn of [facility], normal first , [facility] Dr CHÁVEZ, preg, second 120, Taras 120, [id number], [id number] Juanjo Geiger, [place] weeks gestation [place], [place], tel: of [phone]. , [place]. tel: tel: [phone] Keyana Geiger Encntr for Frankie-2 Pineda Referring In Womens suprvsn of 1-201 Soni. Provider: Erica GAVIRIA, normal first 7 [address] PO Box preg, first Medical Driss, 700 1522, [id number] [facility], weeks gestation , [facility] Dr CHÁVEZ, of 120, Taras 120, , Juanjo Geiger, [place], [place], tel:[phone]. , [place]. tel: tel: [phone] Keyana Geiger Encntr for Frankie-2 Moreno Referring In Womens Ultrasound suprvsn of 1-201 Leelee. Provider: Erica GAVIRIA, normal first 7 [address] PO Box preg, first Medical Driss, 700 1522, [email or web address] [facility], weeks gestation , [facility] Dr CHÁVEZ, of 120, Taras 120, , Juanjo Geiger, [place], [place], tel:[phone]. , [place]. tel: tel: [phone] Keyana Geiger Encntr for Frankie-2 Pineda Referring In Womens suprvsn of 0-201 Soni. Provider: Erica GAVIRIA, normal first 7 [address] PO Box preg, first Medical Driss, 700 1522, [id number] [facility] Es[place], weeks gestation Dr, [facility] Dr CHÁVEZ, of 120, Taras 120, [id number], Juanjo Geiger, [place], [place], tel: [phone]. , [place]. tel: tel: [phone] [facility] Irregular Frankie- Madden Referring In Womens MensesEncounter 5-201 Shana. Provider: Erica GAVIRIA, for 7 [address] PO Box test, result Medical Driss, 700 1522, unknown [place] Jyae Dewitt, , [facility] Dr CHÁVEZ, 120, Taras 120, [id number], Juanjo [place], [place], tel: [phone]. , [place]. tel: tel: [phone] [facility] Frequency of Driss Referring In Womens micturition 5-201 Skye. Provider: Erica GAVIRIA, 6 [address] PO Box Medical Driss, 700 1522, [place] Jaye Dewitt, , [facility] Dr CHÁVEZ, 120, Taras 120, [id number], Juanjo Geiger, [place], [place], tel: [phone]. , [place]. tel: tel: [phone] [facility] Encntr for supervisor dials Holdeman Referring In Womens exam (general) - Anaya. Provider: Erica GAVIRIA, (routine) w/o 5 [address] PO Box abn findingsPap Medical Driss, 700 1522, Smear Screening, [facility] Es[place], Cervix , [facility] Dr CHÁVEZ, 120, Taras 120, [id number], Juanjo Geiger, [place], [place], tel: [phone]. , [place]. tel: tel: [phone] [facility] May- Driss Referring In Womens 3-201 Skye. Provider: Erica GAVIRIA, 4 700 [address] PO Box Medical Driss, 700 1522, [facility] [address], [facility] Dr CHÁVEZ, 120, Taras 120, [id number], Juanjo Gieger, [place] CHÁVEZ, tel:[phone]. [id number] , . tel: tel: [phone] Family History Family Member Diagnosis Age At [...] [employer] [place] - Medicaid MC [id number] Medica CI [id number] [employer]etna CI [id number] Social History Type Description Quantity Date Captured [...] Complete OB Ultrasound > 14 Ordered Weeks ([id number]) Future Order: Lab Order Pap Smear With HPV Reflex If Ordered ASCUS (WPMPap1) Future Order: Radiology Order Nuchal Translucency ([id number]) Ordered Future Order: Lab Order Pap Smear [...]
--- OUTSIDE RECORDS SUMMARY | 2017-07-23 10:55 | External Medical Summary | Continuity of Care Document ---
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 abn findings Maternal care for excess growth, - second tri, unsp Encntr for suprvsn of normal first - preg, second trimester 20 weeks gestation of - Irregular Menses Encounter for test, result unknown Maternal care for excess growth, - second tri, unsp Encntr for suprvsn of normal first - preg, second trimester 17 weeks gestation of - Frequency of micturition [...] Herpes Simplex Virus Active Procedures Procedure Date Ultrasound exam of preg uterus, complete Results Test Name Date and Time Measure Units Reference Range Abnormal Flag Comments Unknown Advance Directives Directive Yes / No Effective Date File Name Unknown Encounters Encounter Practice Location Reason(s) Diagnoses Date Provider Care Team Description For Visit Members Keyana Willis for Pineda Referring In Womens suprvsn of 9-201 Soni. Provider: marquis Crooks first 7 [address] PO Box preg, second Medical Driss, 700 1522, [email or web address] [facility], weeks gestation , [facility] Dr CHÁVEZ, of 120, Taras 120, [id number], Juanjo Geiger, [place], tel:[phone]. , [place]. tel: tel: [phone] Keyana Geiger Maternal care Mar- Pineda Referring In Womens Ultrasound for excess -201 Soni. Provider: ximena Crooks, second 7 700 [address] PO Box tri, unspEncntr Medical Driss, 700 1522, for suprvsn of [facility], normal first , [facility] Dr CHÁVEZ, preg, second 120, Taras 120, [id number], [id number] Juanjo Geiger, weeks gestation [place] CH[place], tel: of [phone]. , [place]. tel: tel: [phone] Keyana Geiger Maternal care Pineda Referring In Womens for excess 9-201 Soni. Provider: ximena Crooks, second 7 700 [address] PO Box tri, unspEncntr Medical Driss, 700 1522, for suprvsn of [facility], normal first , [facility] Dr CHÁVEZ, preg, second 120, Taras 120, [id number], [id number] Juanjo Geiger, weeks gestation [place] CH[place], tel:[phone]. , [place]. tel: tel: [phone] Keyana Willis for Jan- Pineda Referring In Womens suprvsn of 1-201 Soni. Provider: [facility], normal first 7 700 [address] PO Box preg, first Medical Driss, 700 1522, [email or web address] [facility] Esdras, weeks gestation , [facility] Dr CHÁVEZ, of 120, Taras 120, , Juanjo Geiger, [place], [place], tel:[phone]. , [place]. tel: tel: [phone] Keyana Geiger Encntr for Frankie-2 Moreno Referring In Womens Ultrasound suprvsn of 1-201 Leelee. Provider: Erica GAVIRIA, normal first 7 700 [address] PO Box preg, first Medical Driss, 700 1522, [email or web address] [facility] Esdras, weeks gestation , [facility] Dr CHÁVEZ, of 120, Taras 120, , Juanjo Geiger, [place], [place], tel:[phone]. , [place]. tel: tel: [phone] Geiger 13 weeks Frankie-2 Pineda Referring In Womens gestation of 0-201 Soni. Provider: Erica GAVIRIA, pregnancyEncntr 7 700 Skye PO Box for suprvsn of Medical Driss, 700 1522, normal first [place] Jaye Dweitt, preg, first , [facility] Dr CHÁVEZ, trimester 120, Taras 120, , Juanjo Geiger, [place], [place], tel:+ [phone]. , [place]. tel: tel: [phone] Keyana Geiger Irregular Frankie-0 Madden Referring In Womens MensesEncounter 5-201 Shana. Provider: Erica GAVIRIA, for 7 700 [address]e PO Box test, result Medical Driss, 700 1522, unknown [facility] [address], [facility] Dr CHÁVEZ, 120, Taras 120, [id number], Juanjo Geiger, [place], [place], tel:[phone]. , [place]. tel: tel: [phone] Keyana Geiger Frequency of December- Driss Referring In Womens micturition 5-201 Skye. Provider: Erica GAVIRIA, 6 700 [address] PO Box Medical Driss, 700 1522, [place] [address], [facility] Dr CHÁVEZ, 120, Taras 120, [id number], Juanjo Geiger, [place], tel: [phone]. , [place]. 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 Provider: Erica GAVIRIA, (routine) w/o 5 700 [address] PO Box abn findingsPap Medical Driss, 700 1522, Smear Screening, [place] Jaye Dewitt, Cervix , [facility] Dr CHÁVEZ, 120, Taras 120, [id number], Juanjo Geiger, [place], tel: [phone]. , [place]. tel: tel: [phone] Keyana Geiger Driss Referring In Womens 3-201 Skye. Provider: Erica GAVIRIA, 4 700 [address] PO Box Medical Driss, 700 1522, [place] [address], [facility] Dr CHÁVEZ, 120, Taras 120, [id number], Juanjo Geiger, [place], [place], tel: [phone]. , [place]. tel: tel: [phone] Family History Family Member Diagnosis Age At [...] Unknown Payers Payer name Insurance type Covered constitution party ID Authorization(s) [employer] Plan [place] - Medicaid MC [id number] Medica CI [id number] A[employer] CI [id number] Social History Type Description Quantity Date Captured [...] Complete OB Ultrasound > 14 Ordered Weeks (77625) Future Order: Lab Order Pap Smear With HPV Reflex If Ordered ASCUS (WPMPap1) Future Order: Radiology Order Nuchal Translucency ([id number]) Ordered Future Order: Lab Order Pap Smear [...]
--- OUTSIDE RECORDS SUMMARY | 2017-07-23 10:55 | External Medical Summary | Continuity of Care Document ---
:1985 Author Organization [facility] Allergies Active Description Code Type Severity Reaction Onset Reported/ Identified Relationship Clinical to Patient Status Yes No Known 88820 3 N/A N/A Drug 0 Allergies Medications Medication Packaging Start Date Stop Date Route Dosage Sig Packet 07/22/2015 RECLIPSEN 6 take 1 tablet by oral route every day Packet 07/27/2016 RECLIPSEN 7 take 1 tablet by oral route every day Tablet 06/20/2017 ACYCLOVIR take 1 tablet (400MG) by ORAL route every 8 hours until delivery Problems Date Dx Coded Attending Type Code Diagnosis Diagnosed By 01/24/2017 Leelee Moreno34.01 Encntr for suprvsn of normal first preg, first trimester 01/24/2017 Leelee Moreno3A.13 13 weeks gestation of 03/14/2017 Soni Pineda O36.62x0 Maternal care for excess growth, second tri, unsp 03/14/2017 Soni Pineda34.02 Encntr for suprvsn of normal first preg, second trimester 03/14/2017 Soni Pineda.20 20 weeks gestation of 07/04/2017 Soni Pineda O36.5930 Matern care for oth or susp poor fetl grth, third tri, unsp 07/04/2017 Soni Pineda.36 36 weeks gestation of Procedures Code Description [place] [address] Ultrasound, 01/24/2017 Nuchal Translucency Measurement 47432 Ultrasnd exam 03/14/2017 of preg uterus, compl 31776 Immuniz 05/25/2017 admnin, 1 vac, sngl/combo 85896 Flu Vaccine - 05/25/2017 Quadrivalent 12741 Immuniz 06/06/2017 admnin, 1 vac, sngl/combo 50124 TDAP VACCINE 06/06/2017 >7 IM 63794 Ultrasnd preg 07/04/2017 uterus, flwup/repeat Results There is no data. Encounters ACCT No. Visit Discharge Status Pt. Type Provider Facility Loc./Unit Complaint Date/Time [id number] 07/18/2017 07/18/2017 CLS Outpatient Pineda, 14:50:00 23:59:59 Soni Rogers [id number] 07/10/2017 07/10/2017 CLS Outpatient Pineda, 10:30:00 23:59:59 Soni Rogers [id number] 07/04/2017 07/04/2017 CLS Outpatient Pineda, 14:40:00 23:59:59 Soni Rogers [id number] 07/04/2017 07/04/2017 CLS Outpatient Pineda, 14:15:00 23:59:59 Soni Rogers [id number] 06/20/2017 06/20/2017 CLS Outpatient Pineda, 15:10:00 23:59:59 Soni Rogers [id number] 06/06/2017 06/06/2017 CLS Outpatient Pineda, 15:20:00 23:59:59 Soni Rogers [id number] 05/25/2017 05/25/2017 CLS Outpatient Pineda, 09:00:00 23:59:59 Soni Rogers [id number] 05/10/2017 05/10/2017 CLS Outpatient Pineda, 08:08:00 23:59:59 Soni Rogers [id number] 05/09/2017 05/09/2017 CLS Outpatient Pineda, 11:13:00 23:59:59 Soni Rogers [id number] 05/03/2017 05/03/2017 CLS Outpatient Pineda, 08:20:00 23:59:59 Soni Rogers [id number] 05/02/2017 05/02/2017 CLS Outpatient Pineda, 14:15:00 23:59:59 Soni Rogers [id number] 04/18/2017 04/18/2017 CLS Outpatient Pineda, 16:54:00 23:59:59 Soni Rogers [id number] 04/11/2017 04/11/2017 CLS Outpatient Pineda, 13:40:00 23:59:59 Soni Rogers [id number] 03/26/2017 03/26/2017 CLS Outpatient Pineda, 11:01:00 23:59:59 Soni Rogers [id number] 03/14/2017 03/14/2017 CLS Outpatient Pineda, 13:35:00 23:59:59 Soni Rogers [id number] 03/14/2017 03/14/2017 CLS Outpatient Pineda, 13:15:00 23:59:59 Soni Rogers [id number] 02/21/2017 02/21/2017 CLS Outpatient Pineda, 11:30:00 23:59:59 Soni Rogers [id number] 01/24/2017 01/24/2017 CLS Outpatient Pineda, 11:15:00 23:59:59 Soni Rogers [id number] 01/24/2017 01/24/2017 CLS Outpatient Moreno, 10:45:00 23:59:59 Leelee Cool [id number] 01/23/2017 01/23/2017 CLS Outpatient Pineda, 14:30:00 23:59:59 Soni Rogers [id number] 01/08/2017 01/08/2017 CLS Outpatient Madden, 11:15:00 23:59:59 Shana Larios [id number] 07/27/2016 07/27/2016 CLS Outpatient Holdeman, 12:53:00 23:59:59 Anaya Larios [id number] 07/25/2016 07/25/2016 CLS Outpatient Driss, 09:29:00 23:59:59 Skye [id number] 12/09/2015 12/09/2015 CLS Outpatient Driss, 08:20:00 23:59:59 Skye [id number] 12/08/2015 12/08/2015 CLS Outpatient Driss, 13:59:00 23:59:59 Skye [id number] 07/22/2015 07/22/2015 CLS Outpatient Holdeman, 10:15:00 23:59:59 Anaya Larios [id number] 06/24/2015 06/24/2015 CLS Outpatient Driss, 09:42:00 23:59:59 Skye
--- OUTSIDE RECORDS SUMMARY | 2017-07-23 10:55 | External Medical Summary | Continuity of Care Document ---
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) w/o abn findings Abnormal glucose complicating - 31 weeks gestation of - Irregular Menses Encounter [...] third trimester 32 weeks gestation of - OCP Surveillance - Active Herpes Simplex Virus Active Procedures Procedure Date Immuniz admnin, 1 vac, sngl/combo 19 Yrs + Flu Vaccine - Quadrivalent OB Visit No Charge Results Test Name Date and Time Measure Units Reference Range Abnormal Flag Comments Unknown Advance Directives Directive Yes / No Effective Date File Name Unknown Encounters Encounter Practice Location Reason(s) Diagnoses Date Provider Care Team Description For Visit Members [facility] Willis for Nov-0 Pineda Referring In Womens suprvsn of 1-201 Soni. Provider: Erica GAVIRIA, normal first 7 [address] preg, third Medical Driss, [address], [facility] , [facility] [address], of 120, Taras 120, [id number], Juanjo Geiger, [facility], [place], tel:[phone]. , [place]. tel: tel: [phone] [facility] Abnormal glucose Oct-2 Pineda Referring In Womens complicating 0-201 Soni. Provider: Erica GAVIRIA, [email or web address] 7 [address] PO Box weeks gestation Medical Driss, 700 1522, of Center [facility] Dr Esdras, [facility] [address], 120, Taras 120, [id number], Juanjo Geiger, [facility], [place], tel:[phone]. , [place]. tel: tel: [phone] Keyana Willis for Sep-2 Pineda Referring In Womens suprvsn of 7-201 Osni. Provider: Erica GAVIRIA, normal first 7 [address] PO Box preg, second Medical Driss, 700 1522, [email or web address] [facility], weeks gestation , [facility] [address], of 120, Taras 120, , Juanjo Geiger, [place], tel: [phone]. , [place]. tel: tel: [phone] Keyana Geiger Encntr for Sep-0 Pineda Referring In Womens suprvsn of 6-201 Soni. Provider: Erica GAVIRIA, normal first 7 [address] PO Box preg, second Medical Driss, 700 1522, [email or web address] [facility], weeks gestation , [facility] [address], of 120, Taras 120, , Juanjo Geiger, [place], tel: [phone]. , [place]. tel: tel: [phone] Keyana Willis for Aug-0 Pineda Referring In Womens suprvsn of 9-201 Soni. Provider: Erica GAVIRIA, normal first 7 [address] PO Box preg, second Medical Driss, 700 1522, [email or web address] [facility], weeks gestation , [facility] [address], of 120, Taras 120, , Juanjo Geiger, [place], tel:[phone]. , [place]. tel: tel: [phone] Keyana Geiger Maternal care Aug-0 Pineda Referring In Womens Ultrasound for excess 9-201 Soni. Provider: Erica GAVIRIA, growth, second 7 [address] PO Box tri, unspEncntr Medical Driss, 700 1522, for suprvsn of [facility], normal first , [facility] [address], preg, second 120, Taras 120, , [email or web address] Juanjo Geiger, weeks gestation [place], tel:[phone]. , [place]. tel: tel: [phone] Keyana Geiger Maternal care Ta-1 Pineda Referring In Womens for excess 9-201 Soni. Provider: Erica GAVIRIA, growth, second 7 700 [address] PO Box tri, unspEncntr Medical Driss, 700 1522, for suprvsn of [facility], normal first , [facility] [address], preg, second 120, Taras 120, [id number], [email or web address] Juanjo Geiger, weeks gestation [place], [place], tel: of [phone]. , [place]. tel: tel: [phone] Keyana Geiger Encntr for Frankie-2 Pineda Referring In Womens suprvsn of 1-201 Soni. Provider: Erica GAVIRIA, normal first 7 700 [address] PO Box preg, first Medical Driss, 700 1522, [email or web address] [facility], weeks gestation , [facility] [address], of 120, Taras 120, , Juanjo Geiger, [place], tel:[phone]. , [place]. tel: tel: [phone] Keyana Geiger Encntr for Frankie-2 Moreno Referring In Womens Ultrasound suprvsn of 1-201 Leelee. Provider: Erica GAVIRIA, normal first 7 [address] PO Box preg, first Medical Driss, 700 1522, [facility], weeks gestation , [facility] [address], of 120, Taras 120, , Juanjo Geiger, [place], tel:[phone]. , [place]. tel: tel: [phone] Keyana Geiger Encntr for Frankie-2 Pineda Referring In Womens suprvsn of 0-201 Soni. Provider: Erica GAVIRIA, normal first 7 700 [address] PO Box preg, first Medical Driss, 700 1522, [email or web address] [facility], weeks gestation , [facility] [address], of 120, Taras 120, , Juanjo Geiger, [place], tel:[phone]. , [place]. tel: tel: [phone] Keyana Geiger Irregular Frankie-0 Madden Referring In Womens MensesEncounter 5-201 Shana. Provider: Erica GAVIRIA, for 7 700 [address] PO Box test, result Medical Driss, 700 1522, unknown [place] [address], [facility] [address], 120, Taras 120, [id number], Juanjo Geiger, [place], [place], tel: [phone]. , [place]. tel: tel: [phone] [facility] Frequency of December- Driss Referring In Womens micturition 5-201 Skye. Provider: Erica GAVIRIA, 6 700 [address] PO Box Medical Driss, 700 1522, [place] [address], [facility] [address], 120, Taras 120, [id number], Juanjo Geiger, [place], [place], tel: [phone]. , [place]. 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 Provider: Erica GAVIRIA, (routine) w/o 5 700 [address] PO Box abn findingsPap Medical Driss, 700 1522, Smear Screening, [place] [address], Cervix , [facility] [address], 120, Taras 120, [id number], Juanjo Geiger, [place], [place], tel: [phone]. , [place]. tel: tel: [phone] Keyana Geiger Driss Referring In Womens 3-201 Skye. Provider: Erica GAVIRIA, 4 700 [address] PO Box Medical Driss, 700 15[address], [place] [address], [facility] [address], 120, Taras 120, [id number], Juanjo Geiger, [place], [place], tel: [phone]. , [place]. tel: tel: [phone] Family History Family Member Diagnosis Age At [...] older Payers Payer name Insurance type Covered libertarian ID Authorization(s) [place] [place] - Medicaid MC [id number] Medica CI [id number] Aetna CI [id number] [place] - Medicaid MC [id number] [place] - Medicaid MC [id number] Social History Type Description Quantity Date Captured Alcohol Use Details No Caffeine Use Details Unknown Tobacco Use Status Smoking Status Former smoker Vital Signs Date / Height Weight BMI Pulse Blood Temperature Respiratory Body Head BMI Time: Rate Pressure Rate Surface Circumference percentile Area 168.20 36.3 130/82 -2017 lbs 9 mm[Hg] 8:47 kg/m AM eter (2) Chief Complaint And [...] Complete OB Ultrasound > 14 Ordered Weeks (91498) Future Order: Lab Order Pap Smear With HPV Reflex If Ordered ASCUS (WPMPap1) Future Order: Radiology Order Nuchal Translucency ([id number]) Ordered Future Order: Lab Order Pap Smear [...]
--- OUTSIDE RECORDS SUMMARY | 2017-07-23 10:55 | External Medical Summary | Continuity of Care Document ---
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 Provider: Erica GAVIRIA, [email or web address] 7 [address] PO Box weeks gestation Medical Driss, 700 1522, of [place] [address], [facility] Dr [address], 120, Taras 120, [id number], Juanjo Geiger, [place], [place], tel:[phone]. , [place]. tel: tel: [phone] Keyana Geiger Oct-0 Pineda In Womens 5-201 Soni. Erica GAVIRIA, 7 700 PO Box Medical [address], [place] Dr Esdras, [facility] [place], 120, [id number], Geiger, [place], tel:[phone] , [place]. tel: [phone] Keyana Willis for Sep-2 Pineda Referring In Womens suprvsn of 7-201 Soni. Provider: Erica GAVIRIA, normal first 7 700 [address] PO Box preg, second Medical Driss, 700 1522, [email or web address] [place] [address], weeks gestation , [facility] Dr [address], of 120, Taras 120, [id number], Juanjo Geiger, [place], [place], tel:[phone]. , [place]. tel: tel: [phone] Keyana Ovallenttaz for Sep-0 Pineda Referring In Womens suprvsn of 6-201 Soni. Provider: Erica GAVIRIA, normal first 7 700 [address] PO Box preg, second Medical Driss, 700 1522, [email or web address] [facility], weeks gestation , [facility] Dr [address], of 120, Taras 120, , Juanjo Geiger, [place], tel: [phone]. , [place]. tel: tel: [phone] Keyana Geiger Encnttaz for Aug-0 Pineda Referring In Womens suprvsn of 9-201 Soni. Provider: Health KHADRA, normal first 7 700 [address] PO Box preg, second Medical Driss, 700 1522, [email or web address] [facility], weeks gestation , [facility] Dr [address], of 120, Taras 120, , Juanjo Geiger, [place], tel: [phone]. , [place]. tel: tel: [phone] Keyana Geiger Maternal care Mar-0 Pineda Referring In Womens Ultrasound for excess 9-201 Soni. Provider: Health KHADRA, growth, second 7 [address] PO Box tri, unspEncntr Medical Driss, 700 1522, for suprvsn of [facility], normal first , [facility] Dr [address], preg, second 120, Taras 120, [id number], [email or web address] Juanjo Geiger, weeks gestation [place], tel: of [phone]. , [place]. tel: tel: [phone] Keyana Geiger Maternal care Feb- Pineda Referring In Womens for excess 9-201 Soni. Provider: Health KHADRA, growth, second 7 700 [address] PO Box tri, unspEncntr Medical Driss, 700 1522, for suprvsn of [facility], normal first , [facility] Dr [address], preg, second 120, Taras 120, [id number], [email or web address] Juanjo Geiger, weeks gestation [place], tel: of [phone]. , [place]. tel: tel: [phone] Keyana Geiger Encntr for Frankie-2 Pineda Referring In Womens suprvsn of 1-201 Soni. Provider: Erica GAVIRIA, normal first 7 700 [address] PO Box preg, first Medical Driss, 700 1522, [email or web address] [facility], weeks gestation , [facility] Dr [address], of 120, Taras 120, [id number], Juanjo Geiger, [place], [place], tel: [phone]. , [place]. tel: tel: [phone] Keyana Geiger Encntr for Frankie-2 Moreno Referring In Womens Ultrasound suprvsn of 1-201 Leelee. Provider: Erica GAVIRIA, normal first 7 700 [address] PO Box preg, first Medical Driss, 700 1522, [email or web address] [facility] , [facility] Dr [address], of 120, Taras 120, , Jaunjo Geiger, [place], [place], tel:[phone]. , [place]. tel: tel: [phone] Keyana Geiger Encntr for Frankie-2 Pineda Referring In Womens suprvsn of 0-201 Soni. Provider: Erica GAVIRIA, normal first 7 700 [address] PO Box preg, first Medical Driss, 700 1522, [email or web address] [facility], weeks gestation , [facility] Dr [address], of 120, Taras 120, , Juanjo Geiger, [place], [place], tel: [phone]. , [place]. tel: tel: [phone] Keyana Geiger Irregular Frankie-0 Madden Referring In Womens MensesEncounter 5-201 Shana. Provider: Erica GAVIRIA, for 7 700 [address]e PO Box test, result Medical Driss, 700 1522, unknown Center [facility] [place], , [facility] Dr [address], 120, Taras 120, [id number], Juanjo Geiger, [place], [place], tel: [phone]. , [place]. tel: tel: [phone] Keyana Geiger Frequency of December- Driss Referring In Womens micturition 5-201 Skye. Provider: Erica GAVIRIA, 6 700 Skye PO Box Medical Driss, [address] 15[address], [place] [address], [facility] Center Dr [address]ÁVEZ, 120, Taras 120, [id number], Juanjo Geiger, [facility], [place], tel: [phone]. , [place]. tel: tel: [phone] Keyana Geiger Encntr for cartridge filler Jul- Holdeman Referring In Womens exam (general) 7-201 Anaya. Provider: Erica GAVIRIA, (routine) w/o 5 700 Skye PO Box abn findingsPap Medical Driss, 700 1522, Smear Screening, [facility] [place], Cervix , [facility] [address], 120, Taras 120, [id number], Juanjo Geiger, [facility], [place], tel: [phone]. , [place]. tel: tel: [phone] Keyana Geiger Driss Referring In Womens 3-201 Skye. Provider: Erica GAVIRIA, 4 700 Sky[address] PO Box Medical Driss, [address] 15[address], [place] [address], [facility] Center Dr [place]Z, 120, Taras 120, [id number], Juanjo Geiger, [facility], [place], tel: [phone]. , [place]. tel: tel: [phone] Family History Family Member Diagnosis Age At [...] older Payers Payer name Insurance type Covered alliance party ID Authorization(s) [employer] Plan [place] - Medicaid MC [id number] Medica CI [id number] Aetna CI [id number] [employer] Plan Of [place] - Medicaid MC [id number] Social History Type Description Quantity Date Captured [...] Complete OB Ultrasound > 14 Ordered Weeks (44188) Future Order: Lab Order Pap Smear With HPV Reflex If Ordered ASCUS (WPMPap1) Future Order: Radiology Order Nuchal Translucency ([id number]) Ordered Future Order: Lab Order Pap Smear [...]
--- NOTE | 2017-07-23 11:07 | OB/GYN Progress Note ---
- Pelvic Exam Comments: SSE in office active HSV lesion - Contractions Monitor mode: None - Status status: Category l (PLTCS for active HSV lesion, NR NST and Decreased FM at term. Discussed R/B/A to procedure including infection, injury to bowel, bladder, . Bleeding with need for transfusion and .)
[2017-07-23] MEDS ORDERED: FentaNYL 100 MCG/2 ML INJECTION ONE (11:38)
[2017-07-23] MEDS ORDERED: MORPHINE SULFATE PF 5mg/10ml INJ (Duramorph) ONE (11:38)
[2017-07-23] MEDS: OXYTOCIN BOLUS BAG 30 UNIT/500 ML ML IV SCH ×2 (12:09→12:23)
[2017-07-23] MEDS ORDERED: ONDANSETRON 4 MG/2 ML INJECTION ONE (12:21)
[2017-07-23] MEDS ORDERED: IBUPROFEN 800 MG TABLET PO PRN (12:35)
[2017-07-23] MEDS ORDERED: HYDROCORTISONE 2.5% CREAM 30gm RECTALLY PRN ×2 (12:35→13:19)
[2017-07-23] MEDS ORDERED: SIMETHICONE 80 MG CHEWABLE TABLET PO PRN ×2 (12:35→13:19)
[2017-07-23] MEDS ORDERED: DiphenhydrAMINE 25 MG CAPSULE PO PRN ×2 (12:35→13:19)
[2017-07-23] MEDS ORDERED: CALCIUM CARBONATE Chewable 500mg TABLET PO PRN ×2 (12:35→13:19)
[2017-07-23] MEDS ORDERED: HYDROCODONE/APAP 5mg/325mg TABLET PO PRN (12:35)
[2017-07-23] MEDS ORDERED: ACETAMINOPHEN 500 MG TABLET PO PRN ×2 (12:35→13:19)
[2017-07-23] MEDS ORDERED: OXYTOCIN DRIP 30 UNIT/500 ML ML IV SCH ×2 (12:45→13:30)
[2017-07-23] MEDS ORDERED: D5LR 1,000 ML IV SCH ×2 (12:45→13:30)
--- NOTE | 2017-07-23 12:50 | Operative Note ---
Operative Note - Date of Operation Date of Operation: 07/23/17 - General : 1 Estimated or Known Gestational Age (weeks): 39 Estimated or Known Gestational Age (days): 3 - Preoperative Diagnosis Preoperative Diagnosis: Decreased movement Nonreactive NST in office Active HSV lesion - Postoperative Diagnosis same as preoperative - Procedure Primary, Low-transverse - Surgeon Surgeon: Soni Pineda MD - Pediatric Sports Medicine Specialist OB Pediatric Sports Medicine Specialist: Pascual Shahid MD - Anesthesia Anesthesia Provider: Magdi Justice CRNA Anesthesia Type: Spinal - Complications Complications: None - Estimated Blood Loss Estimated Blood Loss:: 800 - Findings Findings: viable male, clear fluids, normal uterus, normal adenexa, cephalic, OA - APGARS : 8,9 - Weight [place] Weight (grams): 3212 - Name Name: Simone - Description of Procedure Description of Procedure: The patient was taken to the operating room where anesthesia was obtained . She was placed in the dorsal supine position with a leftward tilt. A Orourke catheter was placed . She was prepared and draped in the normal sterile fashion. A Pfannenstiel incision was created 2 cm above the symphysis pubis and carried down to the fascia. The fascia was incised in the midline with the scalpel and then extended laterally with the Melchor scissors. The fascia was elevated, and the underlying rectus muscles were dissected off. The peritoneum was entered bluntly. This was extended superiorly and inferiorly with good visualization of the bladder. The bladder blade was inserted. A bladder flap was created sharply. The lower uterine segment was incised in a transverse fashion [id number] with the scalpel and bluntly extended. The membranes were ruptured. The infant s head was delivered atraumatically. The nose and mouth were suctioned. The cord was clamped and cut. The was handed to Dr. Cardona who was asked to attend the delivery due to decreased FM and nonreactive NST. The placenta delivered spontaneously. The uterus was exteriorized and cleared of all clots and debris. The uterus was closed with running, locked 0-monocryl. Hemostasis was obtained on the serosal edges with cautery. The uterus was returned to the abdomen. The gutters were cleared of all clots and debris. The uterine incision was inspected one final time and still noted to be hemostatic. The peritoneum was closed with running 2-0 vicryl. Hemostasis was obtained in the rectus muscles with the cautery. The fascia was closed with running 0-vicryl. Hemostasis was obtained in the subcutaneous tissue with the cautery. The skin was closed with 4-0 vicryl in a subcuticular manner. Steri- strips were placed. Sponge, sharp, and instrument counts were correct. The patient tolerated the procedure well and was taken to the recovery room in good condition.
[2017-07-23] MEDS ORDERED: NALOXONE 2 MG/2 ML INJECTION PFS IVP PRN ×2 (12:56→13:55)
[2017-07-23] MEDS ORDERED: NALBUPHINE 10 MG/ML INJECTION IVP PRN (12:56)
[2017-07-23] MEDS ORDERED: DiphenhydrAMINE 50 MG/ML INJECTION IVP PRN (12:56)
[2017-07-23] MEDS ORDERED: METOCLOPRAMIDE 10mg/2ml INJECTION IVP PRN ×2 (12:56→13:55)
[2017-07-23] MEDS ORDERED: SIMETHICONE 80 MG CHEWABLE TABLET PO SCH (13:00)
[2017-07-23] MEDS ORDERED: SALINE FLUSH 10ml SYRINGE IV PRN (13:19)
[2017-07-23] MEDS ORDERED: ONDANSETRON 4 MG/2 ML INJECTION IVP PRN (13:55)
[2017-07-23] MEDS ORDERED: NOZIN NASAL SWAB NAS SCH (14:00)
[2017-07-23] MEDS ORDERED: NON-FORMULARY MEDICATION 1 EACH EACH (Acyclovir [Acyclovir] 400 MG) PO SCH (15:00)
[2017-07-23] MEDS: SIMETHICONE 80 MG CHEWABLE TABLET PO SCH ×2 (20:37→21:34)
--- NOTE | 2017-07-24 08:00 | Anesthesia Postoperative Note ---
- Date and Time Date: 07/24/17 Time: 07:55 - Status Patient Participated in Evaluation: Patient Participated in Person Vital Signs: Temperature 98.1 F 07/24/17 04:30 Pulse Rate 88 07/24/17 04:30 Respiratory Rate 14 07/24/17 04:30 Blood Pressure 117/71 07/24/17 04:30 Pulse Oximetry 100 07/24/17 04:30 Respiratory Function: Airway Patent, Regular Respirations Cardiovascular Function: Regular Pulse Mental Status: Alert and Oriented Pain Intensity: 3 Hydration: Taking PO Fluids Complications During Recover: None Apparent Post Anesthesia Care Notes: ambulatory without problems - Follow-Up Instructions Instructions: Per Surgeon
--- NOTE | 2017-07-24 08:33 | OB/GYN Progress Note ---
<Leelee Moreno - Last Filed: 07/24/17 08:31> OB-PP Progress Note - General POD:: POD1 - Subjective Date: 07/24/17 Lochia: Moderate Pain: controlled Voiding: other (jones removed at 7 a.m. Has not voided.) Nausea or Vomiting Present: No - Objective Vital Signs: Last Vital Signs Temp 98.1 F 07/24/17 04:30 Pulse 88 07/24/17 04:30 Resp 14 07/24/17 04:30 BP 117/71 07/24/17 04:30 Pulse Ox 100 07/24/17 04:30 Urine Output: good General: alert and oriented Abdomen: fundus firm Incision: dressed Extremities: non-tender Laboratory: Laboratory Results - last 24 hr 07/23/17 07/23/17 07/23/17 10:16 10:16 16:23 WBC 9.1 14.5 H D RBC 4.22 3.92 L Hgb 12.7 12.1 Hct 38.4 35.4 L MCV 91.0 90.3 MCH 30.1 30.9 MCHC 33.1 34.2 RDW Std Deviation 42.0 41.4 Plt Count 193 164 MPV 10.1 10.2 Immature Gran % (Auto) 0.3 Neut % (Auto) 77.6 H Lymph % (Auto) 14.3 L Jenkins % (Auto) 6.9 Eos % (Auto) 0.8 Baso % (Auto) 0.1 Neut # (Auto) 7.1 Lymph # (Auto) 1.3 Jenkins # (Auto) 0.6 Eos # (Auto) 0.1 Baso # (Auto) 0.0 Abs Immat Gran (auto) 0.03 Blood Type O Positive Antibody Screen Positive A* Antibody Identification No Antibody Identified - Assessment Assessment: Primary C/S - Plan Plan: routine care <Soni Pineda - Last Filed: 07/24/17 12:17> OB-PP Progress Note - Subjective Date: 07/24/17 - Objective Vital Signs: Last Vital Signs Temp 98.3 F 07/24/17 08:00 Pulse 82 07/24/17 08:00 Resp 14 07/24/17 08:00 BP 118/69 07/24/17 08:00 Pulse Ox 99 07/24/17 08:00 Laboratory: Laboratory Results - last 24 hr 07/23/17 07/23/17 10:16 16:23 WBC 14.5 H D RBC 3.92 L Hgb 12.1 Hct 35.4 L MCV 90.3 MCH 30.9 MCHC 34.2 RDW Std Deviation 41.4 Plt Count 164 MPV 10.2 Antibody Identification No Antibody Identified - Plan Patient was seen and I agree with MM's note. Patient has voided. Her dressing was removed. Incision C/D/I, no florencio. Doing well.
[2017-07-24] MEDS ORDERED: [UNRECOGNIZED DRUG - REMARK] PO SCH (09:00)
[2017-07-24] MEDS ORDERED: DOCUSATE CALCIUM 240 MG CAPSULE PO SCH ×2 (09:00)
[2017-07-24] MEDS: SIMETHICONE 80 MG CHEWABLE TABLET PO SCH ×3 (14:37→18:43)
[2017-07-25] MEDS: SIMETHICONE 80 MG CHEWABLE TABLET PO SCH (00:21)
--- NOTE | 2017-07-25 07:42 | OB/GYN Progress Note ---
OB-PP Progress Note - General PPD2 Maternal blood type: O+ - Subjective Date: 07/25/17 Lochia: Minimal Pain: controlled Voiding: voiding - Objective Vital Signs: Last Vital Signs Temp 98.0 F 07/25/17 04:30 Pulse 81 07/25/17 04:30 Resp 16 07/25/17 04:30 BP 116/67 07/25/17 04:30 Pulse Ox 97 07/25/17 04:30 General: alert and oriented Abdomen: fundus firm, non-tender, soft, non-distended Incision: clean, no erythema, dry, intact Extremities: non-tender Edema: none - Assessment Assessment: Primary C/S - Plan Plan: routine care, discharge home, continue PNV
[2017-07-25 08:36] VITALS: BP 121/72; PULSE 76; RESP 14; TEMP 97.8; O2SAT 100
== END 2017-07-25 11:20 | disposition home or self-care (01) | DRG 765 ==
LOC: MC 09:45
PROVIDERS: ADMIT Obstetrics & Gynecology; ATTEND Obstetrics & Gynecology